=== PATIENT | female | born 1995 | race Caucasian/White ===

== ENCOUNTER 2020-03-03 09:15 | Outpatient (CLI) | payer BC, SELFPAY ==
--- NOTE | ~2020-03-03 | US_ITS ---
US pelvic complete w TV DATE: 03/03/2020 10:19 INDICATION: Irregular menstruation, amenorrhea. TECHNIQUE: Real-time imaging via transabdominal and transvaginal approaches COMPARISON: 11/20/2009 pelvic ultrasound FINDINGS: The uterus measures 6.5 cm height, 2.8 cm AP and 4.2 cm transverse dimension. Nabothian cer vical cysts are noted, the largest 1 cm. Endometrial echo complex measures 5 mm AP dimension. Right ovary 3.2 x 2.7 x 2.6 cm. Left ovary 3.7 x 2.4 x 3.5 cm. There is vascular flow to both ovaries . No abnormal pelvic mass or abnormal pelvic fluid collection is evident. IMPRESSION: No significant abnormality Reviewed, dictated and finalized at Location A. Reviewed, dictated and finalized at location A. IMPRESSION: No significant abnormality
== END 2020-03-03 09:16 | disposition home or self-care (01) ==
PROVIDERS: PCP Nurse Practitioner Adult Health
DX: N92.6 Irregular menstruation, unspecified (principal)
CPT/HCPCS: 76830; 76856

== ENCOUNTER 2020-09-27 12:22 | Emergency (ER) | payer BC, SELFPAY ==
[2020-09-27] VITALS (49 sets, daily range): BP systolic 97–151; BP diastolic 57–90; PULSE 78–111; RESP 16–39; TEMP 36.7; O2SAT 92–100
--- NOTE | ~2020-09-27 | XR_ITS ---
EXAMINATION: XR chest 1V portable DATE: 09/27/2020 14:43 INDICATION: Asthma TECHNIQUE: frontal view of the chest was obtained. COMPARISON: None FINDINGS: The lungs are clear with no focal airspace opacities, pulmonary edema, pleural effusion or pneumothor ax. The cardiomediastinal silhouette is normal. Mild lower thoracic dextrocurvature. IMPRESSION: 1. No acute cardiopulmonary disease. Reviewed, dictated and finalized at location A.
--- NOTE | 2020-09-27 12:55 | ED.ASTHMA ---
HPI - Asthma General Chief Complaint: Asthma Stated Complaint: Asthma Attack Time Seen by Provider: 09/27/20 12:35 Source: patient and RN notes reviewed Mode of arrival: ambulatory History of Present Illness HPI Narrative: Patient is 25 years old white female presents with shortness of breath, wheezing on exertion started 2 days ago. Patient been using albuterol without significant improvement. History of asthma. History of tobacco use, alcohol use, no marijuana. Patient denies any fever, chills, nausea, vomiting, chest pain. Related Data Home Medications Medication Instructions Recorded Confirmed metformin 500 mg PO TID 09/27/20 Allergies Allergy/AdvReac Type Severity Reaction Status Date / Time No Known Allergies Allergy Verified 09/27/20 12:38 Review of Systems Review of Systems: Narrative: CONSTITUTIONAL: Denies fever, chills, or sweats. EYES: Denies visual changes, redness, or discharge. ENT: Denies rhinorrhea, congestion, sore throat, or otalgia. CARDIOVASCULAR: Denies chest pain, palpitations, or edema. RESPIRATORY: Denies cough or dyspnea. GASTROINTESTINAL: Denies abdominal pain, nausea, vomiting, or diarrhea. GENITOURINARY: Denies dysuria or hematuria. SKIN: Denies rash or itching. MUSCULOSKELETAL: Denies back pain, joint pain, or myalgia. NEUROLOGIC: Denies headache, numbness, or weakness. PSYCHIATRIC: Denies anxiety or depression. Exam Narrative: Exam Narrative: General appearance: Well-developed, well-nourished Skin: Normal color Head: Normocephalic, nontraumatic Eyes: Clear conjunctiva ENT: Oropharynx normal, ears normal, nose normal Neck: Supple, nontender Chest and respiratory: Airway patent, no respiratory distress, no accessory muscle use, scattered wheezing all over anteriorly and posteriorly. Heart: Regular rate/rhythm Abdomen: Soft, nontender, no organomegaly, quiet bowel sounds Vascular: Normal peripheral pulses, normal capillary refill. Musculoskeletal: Normal range of motion, nontender back Neurologic: Alert and oriented ?3, WIRELESS NETWORK ENGINEER is normal as tested, no gross motor deficit Course Course Emergency Course: Stable Reevaluation(s) Reevaluation #1: Currently lying auscultation showed no wheezing, patient feeling much better, peak flow is 280. Date: 09/27/20 Time: 14:08 Vital Signs Vital signs: Vital Signs Temperature 36.7 C 09/27/20 12:27 Pulse Rate 99 09/27/20 12:27 Respiratory Rate 18 09/27/20 12:27 Blood Pressure 151/90 H 09/27/20 12:27 Pulse Oximetry 100 09/27/20 12:27 Temperature 36.7 C 09/27/20 12:35 Pulse Rate 97 09/27/20 13:52 Respiratory Rate 16 09/27/20 13:52 Blood Pressure 126/72 09/27/20 13:52 Pulse Oximetry 100 09/27/20 13:52 MDM - Asthma MDM Narrative Medical decision making narrative: Patient presents with asthma exacerbation. Prednisone, albuterol treatment, chest is on room air ordered. Further plan to follow Differential Diagnosis Differential diagnosis: Likely Acute exacerbation, Acute asthmatic bronchitis and Pneumonia ABG Data ABG results: 09/27/20 13:10 Puncture Site Right radial ABG pH 7.437 ABG pCO2 34.3 L ABG pO2 60.2 L ABG PO2/FiO2 Ratio 2.87 ABG HCO3 22.6 ABG O2 Saturation 92.1 L ABG O2 Content 18.8 ABG Base Excess -0.9 A-a Gradient 48.5 Oxyhemoglobin 91.5 Total Hemoglobin 14.6 O2 Delivery Device Room air O2 Liters/Min Not Reportable FiO2 21 Critical Care Time Critical Care Time Critical Care Time: Yes Total Critical Care Time: 20 Discharge Plan Discharge Clinical Impression: Asthma with acute exacerbation Qualifiers: Asthma severity: moderate Asthma persistence: unspecified Qualified Code(s)
[2020-09-27] MEDS: ALBUTEROL SULFATE NEB 2.5 MG/0.5 ML INH 10 MG INHALATION (13:10)
[2020-09-27 13:19] LABS: Alveolar/Arterial O2 Gradient 48.5 mmHg; Base Excess ABG -0.9 mEq/l (+/-2.0); Fractional Inspired Oxygen 21 %; HCO3 ABG 22.6 mEq/l (22.0-26.0); Oxygen Content ABG 18.8 %vol (16.0-22.0); Oxygen Saturation ABG 92.1 % (95.0-100.0); Oxyhemoglobin 91.5 % THb (90.0-100.0); PCO2 ABG 34.3 mmHg (35.0-45.0); PO2 ABG 60.2 mmHg (80.0-100.0); PO2 FiO2 Ratio Arterial Blood 2.87 %; Total Hemoglobin 14.6 g/dL (12.0-18.0); pH ABG 7.437 (7.350-7.450)
[2020-09-27 13:20] LABS: Device ROOM AIR; Modified Allen's Test Pass; Site Drawn RIGHT RADIAL
[2020-09-27] MEDS: predniSONE 20 MG TABLET 60 MG PO (13:27)
--- NOTE | 2020-09-27 13:52 | PC.NURSE ---
pul ox applied prior to this time
== END 2020-09-27 17:45 | disposition home or self-care (01) ==
LOC: ANHED 14:30
PROVIDERS: Emergency Provider Emergency Medicine; PCP Nurse Practitioner Adult Health
DX: J45.901 Unspecified asthma with (acute) exacerbation (principal)
CPT/HCPCS: 36600; 71045; 82805; 94640; 99283; J7512

== ENCOUNTER 2021-01-07 16:05 | Outpatient (CLI) | payer BC, SELFPAY ==
--- NOTE | ~2021-01-07 | US_ITS ---
EXAMINATION: US OB <= 14 weeks fetus DATE: 01/07/2021 16:37 INDICATION: Uncertain dates. TECHNIQUE: Real-time transabdominal pelvic ultrasound was performed. COMPARISON: None. FINDINGS: The uterus measures 13.8 x 5.9 x 8.5 cm. There is an intrauterine gestational sac. A yolk sac is iden tified. The crown rump length measures 1.8 cm, which correlates with an estimated gestational age of 8 weeks and 2 day(s) (+/-) 5 day(s). heart motion is identified measuring 170 beats per minute (bpm) by M-mode Doppler. The ovaries are not visualized. There is no free fluid in the pelvis. IMPRESSION: 1. Single living intrauterine gestation with estimated date of delivery of 08/17/2021. Reviewed, dictated and finalized at location A. IMPRESSION: 1. Single living intrauterine gestation with estimated date of delivery of 07/30.
== END 2021-01-07 16:06 | disposition home or self-care (01) ==
PROVIDERS: PCP Nurse Practitioner Adult Health; Visit Provider Obstetrics & Gynecology
DX: Z36.9 Encounter for antenatal screening, unspecified (principal); Z3A.00 Weeks of gestation of pregnancy not specified
CPT/HCPCS: 76801

== ENCOUNTER 2021-01-21 10:34 | Outpatient (CLI) | payer BC, SELFPAY ==
[2021-01-21 10:58] LABS: Basophils Absolute Auto 0.1 K/mm3 (0.0-0.1); Basophils Percent Auto 0.6 % (0.2-1.2); Eosinophils Absolute Auto 0.2 K/mm3 (0-0.3); Eosinophils Percent Auto 1.9 % (0-4.4); Hematocrit 41.6 % (37.0-47.0); Hemoglobin 13.5 g/dL (12.0-15.0); Immature Granulocyte Absolute 0.04 K/mm3 (0.00-0.031); Immature Granulocyte Percent A 0.5 % (0-0.5); Lymphocytes Absolute Auto 1.72 K/mm3 (0.9-3.2); Lymphocytes Percent Auto 21.3 % (18.3-44.2); Mean Corpuscular HGB Conc 32.5 g/dl (32-36); Mean Corpuscular Hemoglobin 28.3 pg (26-34); Mean Corpuscular Volume 87.2 fl (80-100); Mean Platelet Volume 12.3 fl (7.4-10.4); Monocytes Absolute Auto 0.5 K/mm3 (0.1-0.6); Monocytes Percent Auto 6.1 % (2.6-8.5); Neutrophils Absolute Auto 5.6 K/mm3 (1.3-6.7); Neutrophils Percent Auto 69.6 % (45.5-73.1); Platelet Count Result 255 k/mm3 (150-375); Red Blood Count 4.77 M/mm3 (4.2-5.4); Red Cell Distribution Width 13.1 % (11.5-14.5); White Blood Count 8.1 K/mm3 (4.5-10.0)
[2021-01-21 11:27] LABS: Vitamin D 25 Hydroxy 39.3 ng/mL
[2021-01-21 11:40] LABS: Thyroid Stimulating Hormone 0.617 uIU/mL (0.465-4.680)
[2021-01-21 11:51] LABS: Hepatitis B Surface Antigen Negative (Negative); Rubella IgG Antibody 30.2 IU/ML
[2021-01-21 11:54] LABS: HIV 1/2 Ab P24 Ag Result Negative (Negative)
[2021-01-21 12:00] LABS: Hepatitis C Virus Antibody Negative (Negative)
[2021-01-22 04:28] LABS: Add Urine Microscopic? YES; Amorphous Sediment Urine Few; Appearance Urine Turbid (Clear); Bilirubin Urine Negative (Negative); Blood Urine Negative (Negative); Color Urine Yellow (Yellow); Glucose Urine UA Negative (Negative); Ketones Urine Negative (Negative); Leukocyte Esterase Ur 2+ LEU/UL (NEGATIVE); Nitrate Urine Negative (Negative); Protein Urine Negative (Negative); Specific Grav Ur 1.025 (1.001-1.035); Urobilinogen Urine Negative mg/dL (<2.0)
[2021-01-22 10:05] LABS: Rapid Plasma Reagin Non-Reactive (NonReactive)
[2021-01-30 16:38] LABS: Hematocrit 41.4 % (35.0-45.0); Hemoglobin 13.5 g/dL (11.7-15.5); MCH 29.9 pg (27.0-33.0); MCV 91.6 fL (80.0-100.0); RDW 14.3 % (11.0-15.0); Red Blood Cell Count 4.52 Mill/uL (3.80-5.10)
== END 2021-01-21 10:35 | disposition home or self-care (01) ==
LOC: ANHLAB 10:36
PROVIDERS: PCP Nurse Practitioner Adult Health; Visit Provider Obstetrics & Gynecology
DX: Z34.90 Encounter for supervision of normal pregnancy, unspecified, unspecified trimester (principal); Z3A.00 Weeks of gestation of pregnancy not specified
CPT/HCPCS: 36415; 81001; 82306; 83021; 84443; 85025; 86592; 86703; 86762; 86787; 86803; 86850; 86900; 86901; 87077; 87086; 87088; 87186; 87340; G0432

== ENCOUNTER → 2021-03-25 15:43 | Outpatient (CLI) | payer BC, SELFPAY ==
--- NOTE | ~2021-03-25 | US_ITS ---
US OB /maternal detail DATE: 03/25/2021 16:25 INDICATION: anatomy screen TECHNIQUE: Real-time and color flow imaging and Doppler analysis COMPARISON: 01/07/2021 obstetrical ultrasound examination FINDINGS: Live montes intrauterine gestation, fetus in variable presentation during examination, t ransverse lie. Anterior placenta. Lower placental margin is 1.9 cm above the internal os. Subjectively normal amount of amniotic fluid. heart rate of 128 bpm; four-chamber heart. The left and right ventricular outflow tracts are not optimally demonstrated.. The cerebral ventricles, choroid plexus, cerebellum, cisterna magna and nuchal fold appear norm al. upper lip normal. spine appears normal on transverse and longitudinal views. The feta l diaphragm appears intact. stomach contains fluid, as does the urinary bladder. The kidn eys are unremarkable, without hydronephrosis. Three-vessel umbilical cord with normal insertion. Feta l extremities are unremarkable. Biparietal diameter: 4.30 cm; 19 weeks gestation Head circumference: 16.11 cm; 18 weeks 6 days Abdominal circumference: 13.79 cm; 19 weeks 1 day Femur length: 3.01 cm; 19 weeks 2 days Composite age by Hadlock formula: 19 weeks 1 day plus or minus 1 week 2 days MAYA: 08/18/2021 (compared to 08/17/2021 by prior obstetrical ultrasound) Estimated weight: 279.7 +/- 42 grams Estimated weight-GP: 40.7% Head circumference/abdominal circumference: 1.17, within normal range of 1.09-1.26 Femur length/head circumference 18.67, slightly above normal range of 16.20-18.51 IMPRESSION: Unremarkable anatomy screen; left and right ventricular outflow tracts are not well demonstrated however Reviewed, dictated and finalized at Location A. Reviewed, dictated and finalized at location B. IMPRESSION: Unremarkable anatomy screen; left and right ventricular outfl ow tracts are not well demonstrated however
== END ==
PROVIDERS: Visit Provider Obstetrics & Gynecology
DX: Z36.9 Encounter for antenatal screening, unspecified (principal); Z3A.00 Weeks of gestation of pregnancy not specified
CPT/HCPCS: 76805

== ENCOUNTER 2021-04-15 09:26 | Outpatient (CLI) | payer BC, SELFPAY ==
--- NOTE | ~2021-04-15 | US_ITS ---
US OB limited 04/15/2021 09:53 Indication: Follow-up survey Procedure: High-resolution Limited obstetrical ultrasound Comparison: Ultrasound dated 03/25/2021 Findings: There is a single living intrauterine in transverse presentation. Placenta is ant erior measuring 0.9 cm to the cervix. heart rate is 159 bpm. Amniotic fluid is subjectively nor mal. Four-chamber heart, right ventricular outflow tract and left ventricular outflow tract are visua lized on the current study. Impression: 1: Single living intrauterine in transverse presentation. 2: Low-lying marginal anterior placenta measuring 0.9 cm to the cervix. 3: Normal limited survey of the ventricular outflow tracts. Reviewed, dictated and finalized at location B. Impression: 1: Single living intrauterine in transverse presentation. 2: Low-lying marginal anterior placenta measuring 0.9 cm to the cervix. 3: Normal limited survey of the ventricular outflow tracts.
[2021-07-29 10:19] VITALS: BP 115/67; PULSE 106
== END 2021-04-15 09:27 | disposition home or self-care (01) ==
LOC: ANHIMG 09:29
PROVIDERS: PCP Nurse Practitioner Adult Health; Visit Provider Obstetrics & Gynecology
DX: O44.40 Low lying placenta NOS or without hemorrhage, unspecified trimester (principal); Z3A.00 Weeks of gestation of pregnancy not specified
CPT/HCPCS: 76815

== ENCOUNTER 2021-05-13 09:07 | Outpatient (CLI) | payer BC, SELFPAY ==
[2021-05-13 11:21] LABS: Glucose 1 Hour PP 50gm Dose 134 mg/dL
[2021-05-13 11:25] LABS: Basophils Absolute Auto 0.1 K/mm3 (0.0-0.1); Basophils Percent Auto 0.6 % (0.2-1.2); Eosinophils Absolute Auto 0.1 K/mm3 (0-0.3); Eosinophils Percent Auto 1.8 % (0-4.4); Hematocrit 38.7 % (37.0-47.0); Hemoglobin 13.1 g/dL (12.0-15.0); Immature Granulocyte Absolute 0.07 K/mm3 (0.00-0.031); Immature Granulocyte Percent A 0.9 % (0-0.5); Lymphocytes Absolute Auto 1.75 K/mm3 (0.9-3.2); Lymphocytes Percent Auto 22.3 % (18.3-44.2); Mean Corpuscular HGB Conc 33.9 g/dl (32-36); Mean Corpuscular Hemoglobin 29.6 pg (26-34); Mean Corpuscular Volume 87.4 fl (80-100); Mean Platelet Volume 12.3 fl (7.4-10.4); Monocytes Absolute Auto 0.5 K/mm3 (0.1-0.6); Monocytes Percent Auto 5.7 % (2.6-8.5); Neutrophils Absolute Auto 5.4 K/mm3 (1.3-6.7); Neutrophils Percent Auto 68.7 % (45.5-73.1); Platelet Count Result 223 k/mm3 (150-375); Red Blood Count 4.43 M/mm3 (4.2-5.4); Red Cell Distribution Width 13.2 % (11.5-14.5); White Blood Count 7.8 K/mm3 (4.5-10.0)
[2021-05-13 12:04] LABS: HIV 1/2 Ab P24 Ag Result Negative (Negative)
[2021-05-17 07:19] LABS: Rapid Plasma Reagin Non-Reactive (NonReactive)
== END 2021-05-13 09:08 | disposition home or self-care (01) ==
LOC: ANHLAB 09:09
PROVIDERS: PCP Nurse Practitioner Adult Health; Visit Provider Obstetrics & Gynecology
DX: Z34.90 Encounter for supervision of normal pregnancy, unspecified, unspecified trimester (principal); Z3A.00 Weeks of gestation of pregnancy not specified
CPT/HCPCS: 36415; 82947; 85025; 86592; 86703; G0432

== ENCOUNTER 2021-05-16 07:56 | Outpatient (CLI) | payer BC, SELFPAY ==
[2021-05-16 08:28] LABS: Glucose Fasting Gestational 103 mg/dL (>/=95)
[2021-05-16 09:48] LABS: Glucose 1 Hour Gest 181 mg/dL (>/=180)
[2021-05-16 11:17] LABS: Glucose 2 Hour Gest 136 mg/dL (>/= 155)
[2021-05-16 11:58] LABS: Glucose 3 Hour Gest 148 mg/dL (>/=140)
== END 2021-05-16 07:57 | disposition home or self-care (01) ==
PROVIDERS: PCP Nurse Practitioner Adult Health; Visit Provider Obstetrics & Gynecology
DX: R73.09 Other abnormal glucose (principal)
CPT/HCPCS: 36415; 82951; 82952

== ENCOUNTER 2021-05-22 14:30 | Outpatient (CLI) | payer BC, SELFPAY ==
--- NOTE | ~2021-05-22 | US_ITS ---
EXAMINATION: US OB follow up DATE: 05/22/2021 15:13 INDICATION: Evaluate placenta and amniotic fluid volume TECHNIQUE: Real-time transabdominal obstetric ultrasound. FINDINGS: Comparison to multiple prior studies sequentially, with oldest reviewed study dated 021. There is a single living fetus in transverse presentation. The placenta is anterior without placenta previa. Placental margin is 5.2 cm to the cervix. cardiac activity and movement is noted with a heart rate of 138 beats per minute. T he amniotic fluid volume is normal. BRIE measures 10.6 cm. The following biometric data were obtained: BPD: 68mm corresponds to gestational age 27 weeks 2 days. Head circumference: 253mm corresponds to gestational age 27 weeks 3 days. Abdominal circumference: 232mm corresponds to gestational age 27 weeks 4 days. Femur length: 52mm corresponds to gestational age 27 weeks 5 days. Estimated weight: 1095grams +/- 164grams, 37.3%.] IMPRESSION: 1. Single living intrauterine in transverse presentation with an estimated gestational age of 27 weeks 4 days by inititial ultrasound. Appropriate interval growth. 2. Normal placenta. 3: Normal BRIE measures 10.6 cm. Reviewed, dictated and finalized at location A. TRIC SHOVEL OPERATOR IMPRESSION: 1. Single living intrauterine in transverse presentation with an est imated gestational age of 27 weeks 4 days by inititial ultrasound. Appropriate interval growth. 2. Normal placenta. 3: Normal BRIE measures 10.6 cm.
== END 2021-05-22 14:31 | disposition home or self-care (01) ==
PROVIDERS: PCP Nurse Practitioner Adult Health; Visit Provider Obstetrics & Gynecology
DX: O44.42 Low lying placenta NOS or without hemorrhage, second trimester (principal); Z3A.27 27 weeks gestation of pregnancy
CPT/HCPCS: 76816

== ENCOUNTER 2021-05-29 08:00 | Outpatient (RCR) | payer BC, SELFPAY ==
[2021-05-29 07:55] VITALS: BMI 37.2
[2021-05-29 07:56] VITALS: BMI 37.2
== END 2021-07-02 11:40 | disposition home or self-care (01) ==
LOC: ANHDMC 08:00
PROVIDERS: PCP Nurse Practitioner Adult Health; Visit Provider Obstetrics & Gynecology
DX: O24.419 Gestational diabetes mellitus in pregnancy, unspecified control (principal); Z3A.00 Weeks of gestation of pregnancy not specified; Z71.89 Other specified counseling; Z71.3 Dietary counseling and surveillance
CPT/HCPCS: 97802; G0108

== ENCOUNTER 2021-07-04 13:51 | Outpatient (CLI) | payer BC, SELFPAY ==
--- NOTE | ~2021-07-04 | US_ITS ---
EXAMINATION: US OB follow up EXAM DATE: 07/04/2021 14:38 INDICATION: Growth scan OB . Follow up growth. 3rd trimester. TECHNIQUE: Pelvic obstetrical transabdominal sonogram was performed by a technologist. There are mu ltiple grayscale and Doppler images available for interpretation. Comparison is made to prior examina tion from 07/01/2021, 05/22/2021. FINDINGS: There is a single fetus identified in vertex presentation with a heart rate of 127 beats pe r minute. The placenta is located in the anterior position. There is no sonographic evidence of retr oplacental hemorrhage identified. The amniotic fluid index is 17.7 centimeters, which is normal. BIOMETRIC DATA: Biparietal diameter (BPD): 8.2 cm ----------------> 33 weeks 0 days. Head circumference (HC): 30.7 cm ----------------> 34 weeks 1 day. Abdominal circumference (AC): 30.8 cm ----------> 34 weeks 5 days. Femur length (FL): 6.5 cm --------------------------> 33 weeks 3 days. These measurements are concordant. HC/AC ratio is 1.00 (The 5th -- 95th percentile range is 0.95-1.11. Estimated weight is 2365 g +/- 355 g. This is the 57th percentile when the currently reported clinical gestation age 33 weeks 5 days, clinical estimated date of delivery (MAYA-OPE) 08/17 is used. F etal estimated gestational age based on measurements from this exam is 33 weeks 6 days, with an estim ated date of delivery (MAYA-AUA) 08/16. IMPRESSION: 1. Single fetus in vertex presentation with heart rate 127 beats per minute. 2. Estimated weight of 355 grams, 57th percentile using the currently reported clinical gestat ion age of 33 weeks 5 days, MAYA(OPE) 08/17. 3. Normal amniotic fluid index 17.7 cm. Reviewed, dictated and finalized at location A. RTISING SPECIALIST IMPRESSION: 1. Single fetus in vertex presentation with heart rate 127 beats per minute. 2. Estimated weight of 355 grams, 57th percentile using the currently re ported clinical gestation age of 33 weeks 5 days, MAYA(OPE) 08/17. 3. Normal amniotic fluid index 17.7 cm.
== END 2021-07-04 13:52 | disposition home or self-care (01) ==
PROVIDERS: PCP Nurse Practitioner Adult Health; Visit Provider Student in an Organized Health Care Education/Training Program
DX: O24.419 Gestational diabetes mellitus in pregnancy, unspecified control (principal); Z3A.33 33 weeks gestation of pregnancy
CPT/HCPCS: 76816

== ENCOUNTER 2021-08-05 10:19 | Outpatient (RCR) | payer BC, SELFPAY ==
[2021-06-24 11:34] VITALS: BP 125/73; PULSE 84
[2021-07-01 14:10] VITALS: BP 123/76; PULSE 102
[2021-07-09 11:05] VITALS: BP 123/66; PULSE 99
[2021-07-15 11:10] VITALS: BP 118/71; PULSE 101
[2021-07-22 11:09] VITALS: BP 132/69; PULSE 105
[2021-07-29 10:39] VITALS: BP 115/67; PULSE 111
--- NOTE | 2021-07-29 10:57 | PC.NURSE ---
BPP 02/03
--- NOTE | ~2021-08-05 | US_ITS ---
EXAMINATION: US OB limited w BPP DATE: 06/24/2021 11:27 INDICATION: Gestational diabetes. Third trimester. TECHNIQUE: Real-time pelvic ultrasound was performed. COMPARISON: Ultrasound 05/22/2021 FINDINGS: There is a single living fetus in breech presentation. The placenta is anterior. heart rate is 145 beats per minute (bpm). The amniotic fluid index is 13.8 cm, which is normal. Biophysical profile performed by the technologist: breathing (30 sec sustained breathing in 30 minutes): 2 out of 2 movement (3 gross body movements in 30 minutes): 2 out of 2 tone (one episode of npfatcb-xtynrsmle-nvxogtv limb movement): 2 out of 2 Amniotic fluid pocket (2 cm): 2 out of 2 Total score: 8 out of 8 IMPRESSION: 1. Single living fetus in breech presentation. 2. Biophysical profile 8 out of 8. Reviewed, dictated and finalized at location A. LINE ASSEMBLER
--- NOTE | ~2021-08-05 | US_ITS ---
EXAMINATION: US OB limited w BPP DATE: 07/29/2021 10:55 INDICATION: Gestational diabetes, third trimester TECHNIQUE: Real-time pelvic ultrasound was performed. The interpreting radiologist was not present fo r the study. COMPARISON: 07/22/2021 FINDINGS: There is a single living fetus in vertex presentation. The placenta is anterior. heart rate is 161 beats per minute (bpm). The amniotic fluid index is 11.8 cm which is normal. Biophysical profile performed by the technologist: breathing (30 sec sustained breathing in 30 minutes): 2 out of 2 movement (3 gross body movements in 30 minutes): 2 out of 2 tone (one episode of uiqetxn-uwnhaolli-mdungqu limb movement): 2 out of 2 Amniotic fluid pocket (2 cm): 2 out of 2 Total score: 8 out of 8 IMPRESSION: 1. Single living fetus in vertex presentation. 2. Biophysical profile 8 out of 8. 3. Normal amniotic fluid index. Reviewed, dictated and finalized at location B. PTIONIST/TELEPHONE OPERATOR
--- NOTE | ~2021-08-05 | US_ITS ---
EXAMINATION: US OB limited w BPP EXAM DATE: 07/09/2021 10:31 INDICATION: gdm/ BRIE, BPP GDM/BRIE/BPP . 3rd trimester. TECHNIQUE: Pelvic obstetrical transabdominal sonogram was performed by a technologist. There are mu ltiple grayscale and Doppler images available for interpretation. Comparison is made to prior examina tion from 07/04/2021. FINDINGS: There is a single fetus identified in vertex presentation with a heart rate of 137 beats pe r minute. The placenta is located in the anterior position. There is no sonographic evidence of retr oplacental hemorrhage identified. The amniotic fluid index is 15.2 centimeters, which is normal. BIOPHYSICAL PROFILE (performed by the technologist) breathing (30 sec sustained breathing in 30 minutes): 2 out of 2 movement (3 gross body movements in 30 minutes): 2 out of 2 tone (one episode of lysdtar-fqphgjzpq-nmjgtvh limb movement): 2 out of 2 Amniotic fluid pocket (2 cm): 2 out of 2 Total score: 8 out of 8 IMPRESSION: 1. Single fetus with heart rate of 137 bpm. 2. Normal biophysical profile score of 8 out of 8. Reviewed, dictated and finalized at location A. Y MAN
--- NOTE | ~2021-08-05 | US_ITS ---
EXAMINATION: US OB limited w BPP DATE: 07/01/2021 14:00 INDICATION: Gestational diabetes. Third trimester. TECHNIQUE: Real-time pelvic ultrasound was performed. COMPARISON: Ultrasound 06/24/2021 FINDINGS: There is a single living fetus in vertex presentation. The placenta is anterior. heart rate is 141 beats per minute (bpm). The amniotic fluid index is 13.4 cm, which is normal. Biophysical profile performed by the technologist: breathing (30 sec sustained breathing in 30 minutes): 2 out of 2 movement (3 gross body movements in 30 minutes): 2 out of 2 tone (one episode of jcbeypf-sxzdhlkiq-njdnpnp limb movement): 2 out of 2 Amniotic fluid pocket (2 cm): 2 out of 2 Total score: 8 out of 8 IMPRESSION: 1. Single living fetus in vertex presentation. 2. Biophysical profile 8 out of 8. Reviewed, dictated and finalized at location A. L VIAL GRINDER
--- NOTE | ~2021-08-05 | US_ITS ---
EXAMINATION: US OB limited w BPP EXAM DATE: 07/15/2021 10:48 INDICATION: GDM-- BPP, BRIE GDM . 3rd trimester. TECHNIQUE: Pelvic obstetrical transabdominal sonogram was performed by a technologist. There are mu ltiple grayscale and Doppler images available for interpretation. Comparison is made to prior examina tion from 07/09/2021. FINDINGS: There is a single fetus identified in vertex presentation with a heart rate of 138 beats pe r minute. The placenta is located in the anterior position. There is no sonographic evidence of retr oplacental hemorrhage identified. The amniotic fluid index is 15.4 centimeters, which is normal. BIOPHYSICAL PROFILE (performed by the technologist) breathing (30 sec sustained breathing in 30 minutes): 2 out of 2 movement (3 gross body movements in 30 minutes): 2 out of 2 tone (one episode of busqlhd-gnifvkqax-uqyzpgc limb movement): 2 out of 2 Amniotic fluid pocket (2 cm): 2 out of 2 Total score: 8 out of 8 IMPRESSION: 1. Single fetus with heart rate of 138 bpm. 2. Normal biophysical profile score of 8 out of 8. 3. Normal BRIE 15.4 cm. Reviewed, dictated and finalized at location G. RUCTIONAL PARAPROFESSIONAL
--- NOTE | ~2021-08-05 | US_ITS ---
EXAMINATION: US OB limited w BPP EXAM DATE: 07/22/2021 10:45 INDICATION: BPP and BRIE gestational diabetes. 3rd trimester. TECHNIQUE: Pelvic obstetrical transabdominal sonogram was performed by a technologist. There are mu ltiple grayscale and Doppler images available for interpretation. Comparison is made to prior examina tion from 07/15/2021. FINDINGS: There is a single fetus identified in vertex presentation with a heart rate of 150 beats pe r minute. The placenta is located in the anterior position. There is no sonographic evidence of retr oplacental hemorrhage identified. The amniotic fluid index is 19.1 centimeters, which is normal. BIOPHYSICAL PROFILE (performed by the technologist) breathing (30 sec sustained breathing in 30 minutes): 0 out of 2 movement (3 gross body movements in 30 minutes): 2 out of 2 tone (one episode of lypsjsw-ghiiastpx-ukjxmmz limb movement): 2 out of 2 Amniotic fluid pocket (2 cm): 2 out of 2 Total score: 6 out of 8 IMPRESSION: 1. Single fetus with heart rate of 150 bpm. 2. Abnormal BPS 6/8. 3. Normal BRIE 19.1 cm. Reviewed, dictated and finalized at location A. NICAL PROJECT MANAGER
--- NOTE | ~2021-08-05 | US_ITS ---
EXAMINATION: US OB limited w BPP DATE: 08/05/2021 11:28 INDICATION: Biophysical profile. Assess amniotic fluid index. Maternal gestational diabetes. TECHNIQUE: Real-time pelvic ultrasound was performed. The interpreting radiologist was not present fo r the study. COMPARISON: 07/29/2021 FINDINGS: There is a single living fetus in vertex presentation. The placenta is anterior. heart rate is 150 beats per minute (bpm). Normal amniotic fluid index of 12.1 cm (5th%-95%: 7.3-23.9 cm at 38 week s estimated gestational age) Biophysical profile performed by the technologist: breathing (30 sec sustained breathing in 30 minutes): 2 out of 2 movement (3 gross body movements in 30 minutes): 2 out of 2 tone (one episode of yfwhwbe-dhotlhpbc-jbrhcbv limb movement): 2 out of 2 Amniotic fluid pocket (2 cm): 2 out of 2 Total score: 8 out of 8 IMPRESSION: 1. Single living fetus in vertex presentation with heart rate of 150 bpm. 2. Biophysical profile 8 out of 8. 3. Normal amniotic fluid index of 12.1 cm. Reviewed, dictated and finalized at location A. RMATION SERVICES TECH
[2021-08-05 11:12] VITALS: BP 122/67; PULSE 110
== END 2021-08-20 09:36 | disposition home or self-care (01) ==
LOC: ANHOBOP 10:19
PROVIDERS: PCP Nurse Practitioner Adult Health; Visit Provider Obstetrics & Gynecology
DX: O24.419 Gestational diabetes mellitus in pregnancy, unspecified control (principal); Z3A.32 32 weeks gestation of pregnancy; Z3A.33 33 weeks gestation of pregnancy; Z3A.34 34 weeks gestation of pregnancy; Z3A.35 35 weeks gestation of pregnancy; Z3A.36 36 weeks gestation of pregnancy; Z3A.37 37 weeks gestation of pregnancy; Z3A.38 38 weeks gestation of pregnancy
CPT/HCPCS: 59025; 76815; 76819

== ENCOUNTER 2021-08-12 05:06 | Inpatient (IN) | payer BC, SELFPAY ==
[2021-08-12] VITALS (188 sets, daily range): BP systolic 77–135; BP diastolic 39–118; PULSE 69–121; TEMP 36.7–38.1; O2SAT 97–100; BMI 37.3
--- NOTE | 2021-08-12 05:29 | LDADM ---
This patient, Anuradha Samson, was admitted to Labor/Delivery/Recovery 104 on 08/12/21 at 05:06. Plans for labor, pain management and were discussed with patient. Patient/family oriented to hospital policies and general routines including ID bracelet, bed and alarms, visiting hours, pain management, procedures, bathroom and other care routines, personal items, smoking policy, room service/diet and guest tray routines, security routines, and visiting hours. Patient/Family are encouraged to report perceived risks to care and to ask questions if they do not understand what they are told or what they should do. See OBIX for further documentation.
[2021-08-12 06:14] LABS: Basophils Percent Auto 0.5 % (0.2-1.2); Eosinophils Absolute Auto 0.1 K/mm3 (0-0.3); Eosinophils Percent Auto 1.4 % (0-4.4); Hematocrit 35.7 % (37.0-47.0); Hemoglobin 11.8 g/dL (12.0-15.0); Immature Granulocyte Absolute 0.06 K/mm3 (0.00-0.031); Immature Granulocyte Percent A 0.7 % (0-0.5); Lymphocytes Absolute Auto 2.26 K/mm3 (0.9-3.2); Lymphocytes Percent Auto 26.2 % (18.3-44.2); Mean Corpuscular HGB Conc 33.1 g/dl (32-36); Mean Corpuscular Hemoglobin 27.6 pg (26-34); Mean Corpuscular Volume 83.6 fl (80-100); Mean Platelet Volume 13.5 fl (7.4-10.4); Monocytes Absolute Auto 0.5 K/mm3 (0.1-0.6); Neutrophils Absolute Auto 5.6 K/mm3 (1.3-6.7); Neutrophils Percent Auto 65.2 % (45.5-73.1); Platelet Count Result 183 k/mm3 (150-375); Red Blood Count 4.27 M/mm3 (4.2-5.4); Red Cell Distribution Width 14.4 % (11.5-14.5); White Blood Count 8.6 K/mm3 (4.5-10.0)
[2021-08-12] MEDS: OXYTOCIN 30 UNITS/NS 500 ML 30 UNITS/500 ML BAG 4 UNITS IV CONT (06:26)
[2021-08-12] MEDS: LACTATED RINGERS 1,000 ML 125 ML IV CONT ×3 (06:26→14:48)
[2021-08-12 06:32] LABS: Glucose Point of Care 104 mg/dl (65-105)
[2021-08-12 06:44] LABS: Glucose 104 mg/dL (65-110)
[2021-08-12 07:02] LABS: HIV 1/2 Ab P24 Ag Result Negative (Negative)
[2021-08-12 07:21] LABS: Rapid Plasma Reagin Non-Reactive (NonReactive)
--- NOTE | 2021-08-12 08:17 | WPDOBADMIT ---
Obstetrics - Admit Note Admission Note: record reviewed. No pertinent additions to the history and/or any subsequent changes in the physical findings that are not consistent with the expected course of the were found. Additions to the history and/or subsequent changes in the physical findings follow. G1 at 39+3 for induction of labor. Cervix 3/50/-2. AROM with clear fluid. GDMA2, blood sugar 104 this morning. Continue pitocin.
[2021-08-12 10:17] LABS: Glucose Point of Care 92 mg/dl (65-105)
[2021-08-12] MEDS: fentaNYL CITRATE INJ (*CRX) 100 MCG/2 ML VIAL 50 MCG IV PUSH (11:28)
[2021-08-12] MEDS: fentaNYL CITRATE INJ (*CRX) 100 MCG/2 ML VIAL IV PUSH (13:25)
--- NOTE | 2021-08-12 14:14 | WPDANESEPP ---
Anes - Eval Pre Procedure Procedure: labor epidural Date/Time: 08/12/21 14:14 Surgeon: griffin Pre Op Diagnosis: IOL' Patient Data Age: 25 Gender: F Height: 1.57 m Weight: 92.75 kg Last Vital Signs Temp 36.9 C 08/12/21 10:15 Pulse 112 H 08/12/21 14:13 BP 77/42 L 08/12/21 14:13 Pulse Ox 99 08/12/21 14:13 Allergies Allergy/AdvReac Type Severity Reaction Status Date / Time codeine AdvReac Mild Nausea and Verified 08/05/21 08:18 Vomiting Home Medications Medication Instructions Recorded Confirmed Type docosahexaenoic acid 200 mg capsule 200 mg PO DAILY 30 Days #30 cap 03/11/21 08/12/21 Rx blood sugar diagnostic 05/20/21 07/22/21 History blood-glucose meter 05/20/21 07/22/21 History lancets 05/20/21 07/22/21 History metformin 500 mg tablet 500 mg PO DAILY #90 tablet 07/08/21 08/12/21 Rx Laboratory Tests 08/12/21 08/12/21 08/12/21 05:56 05:56 05:56 WBC 8.6 K/mm3 K/mm3 (4.5-10.0) RBC 4.27 M/mm3 M/mm3 (4.2-5.4) Hgb 11.8 g/dL L g/dL (12.0-15.0) Hct 35.7 % L % (37.0-47.0) MCV 83.6 fl fl (80-100) MCH 27.6 pg pg (26-34) MCHC 33.1 g/dl g/dl (32-36) RDW 14.4 % % (11.5-14.5) Plt Count 183 k/mm3 k/mm3 (150-375) MPV 13.5 fl H fl (7.4-10.4) Immature Gran % (Auto) 0.7 % H % (0-0.5) Neut % (Auto) 65.2 % % (45.5-73.1) Lymph % (Auto) 26.2 % % (18.3-44.2) Irion % (Auto) 6.0 % % (2.6-8.5) Eos % (Auto) 1.4 % % (0-4.4) Baso % (Auto) 0.5 % % (0.2-1.2) Lymph # (Auto) 2.26 K/mm3 K/mm3 (0.9-3.2) Irion # (Auto) 0.5 K/mm3 K/mm3 (0.1-0.6) Eos # (Auto) 0.1 K/mm3 K/mm3 (0-0.3) Baso # (Auto) 0.0 K/mm3 K/mm3 (0.0-0.1) Abs Immat Gran (auto) 0.06 K/mm3 H K/mm3 (0.00-0.031) Absolute Neuts (auto) 5.6 K/mm3 K/mm3 (1.3-6.7) Absolute Nucleated RBC 0.0 K/mm3 K/mm3 (0.0-0.012) Nucleated RBC % 0.0 % % (0.0-0.2) % Immature Plt Fraction 27.0 % H % (0.9-11.2) Glucose POC Capillary Glucose RPR Non-reactive (NonReactive) HIV 1&2 Ab/P24 Ag 4thGn Blood Type A Positive Antibody Screen Negative 08/12/21 08/12/21 08/12/21 05:56 05:59 06:14 WBC RBC Hgb Hct MCV MCH MCHC RDW Plt Count MPV Immature Gran % (Auto) Neut % (Auto) Lymph % (Auto) Irion % (Auto) Eos % (Auto) Baso % (Auto) Lymph # (Auto) Irion # (Auto) Eos # (Auto) Baso # (Auto) Abs Immat Gran (auto) Absolute Neuts (auto) Absolute Nucleated RBC Nucleated RBC % % Immature Plt Fraction Glucose 104 mg/dL mg/dL (65-110) POC Capillary Glucose 104 mg/dl mg/dl (65-105) RPR HIV 1&2 Ab/P24 Ag 4thGn Negative (Negative) Blood Type Antibody Screen 08/12/21 10:13 WBC RBC Hgb Hct MCV MCH MCHC RDW Plt Count MPV Immature Gran % (Auto) Neut % (Auto) Lymph % (Auto) Irion % (Auto) Eos % (Auto) Baso % (Auto) Lymph # (Auto) Irion # (Auto) Eos # (Auto) Baso # (Auto) Abs Immat Gran (auto) Absolute Neuts (auto) Absolute Nucleated RBC Nucleated RBC % % Immature Plt Fraction Glucose POC Capillary Glucose 92 mg/dl mg/dl (65-105) RPR HIV 1&2 Ab/P24 Ag 4thGn Blood Type Antibody Screen Patient hx anesthesia problems: none Family hx anesthesia problems: none
[2021-08-12 14:52] LABS: Glucose Point of Care 80 mg/dl (65-105)
[2021-08-12 18:30] LABS: Glucose Point of Care 74 mg/dl (65-105)
[2021-08-12] MEDS: ACETAMINOPHEN 325 MG TABLET 650 MG PO (20:32)
[2021-08-12 20:40] LABS: Glucose Point of Care 79 mg/dl (65-105)
[2021-08-12 22:54] LABS: Glucose Point of Care 77 mg/dl (65-105)
[2021-08-12] MEDS: AMPICILLIN 2 GM/NS 100 ML 2 GM/100 ML BAG IVPB (23:11)
[2021-08-13] VITALS (22 sets, daily range): BP systolic 111–134; BP diastolic 47–74; PULSE 78–156; RESP 16–18; TEMP 36.3–37.7; O2SAT 97–100
--- NOTE | 2021-08-13 00:53 | PM.OBPRVD ---
OB - Delivery Note Procedure Delivery date: 08/13/21 Procedure: Events: Diabetes Mellitus Intrapartal Events: Chorioamnionitis Induction method: AROM and Per Pitocin Protocol Delivery monitor: External FHT and Internal Uterine Route of delivery: Laceration Description: Periurethral (bilateral) and Perineal - 2nd Degree Delivery repair: vicryl (2-0) Specimen: No Quantitative Blood Loss (ml): 238 Anesthesia type: Epidural Disposition: floor Baby Date of : 08/13/21 Time of : 00:26 Weeks of gestation at delivery: 39 Infant gender: Female Weight (pounds): 7 Weight (ounces): 15 presentation: vertex position: Right Occiput Anterior Placenta delivery description: Spontaneous Cord Vessel Description: 3 Vessels and Clamped/Cut score one minute: 7 score five minutes: 8
[2021-08-13] MEDS: OXYTOCIN 30 UNITS/NS 500 ML 30 UNITS/500 ML BAG 125 UNITS IV CONT (01:30)
[2021-08-13] MEDS: IBUPROFEN 600 MG TABLET PO (02:49)
[2021-08-13] MEDS: DOCUSATE SODIUM 100 MG CAPSULE PO ×2 (10:16→15:59)
[2021-08-13] MEDS: MULTIVIT/MIN/PREN/FOL AC/IRON TABLET 1 TAB PO (10:16)
[2021-08-13] MEDS: ACETAMINOPHEN 325 MG TABLET 650 MG PO (10:16)
--- NOTE | 2021-08-13 10:49 | PC.NURSE ---
[id number] Introductions were made and mother led the discussion of her desires and plans to feeding her baby. Mother desires to breastfeed but states she isn't opposed to formula. Reviewed handwashing to prevent infection before and after taking care of her baby. Mom is holding swaddled in bed. Mother verbalizes she has not latched since related to infant was level 2. RN unwrapped and undress and placed infant skin to skin on mother's chest. Discussed how to watch for early feeding cues (mother given visual handout), place skin to skin, then feeding baby when infant is ready or every 2-3 hours. Mother has harvested her colostrum and given it to the . Reviewed positioning/alignment with the use of the visuals in the mom and baby guide and demonstration. Mother voiced understanding of waiting for infant to demonstrate big wide open gape (130-150 degrees) for . Reviewed there is to be no pain with , how to detach from the breast, visuals to watch for to confirm effective . Reviewed effective latching with resources tool, visual handout and mom and baby guide. Mother has verbalized understanding and demonstrated watching for feeding cues for responsive feeding or how to stimulate to initiate from the start of the last feeding. Mother hand expressed colostrum into infants mouth with assistance. Mother voiced understanding to feed when she sees feeding cues, 8-12 times in 24 hours approximately every 2-3 hours from the start of the last feeding, to call for assistance if baby doesn't latch or she has discomfort with nursing. Reported to primary RN.
--- NOTE | 2021-08-13 13:13 | PC.NURSE ---
1132 - RN to assess feeding. Mother is feeding hand expressed breastmilk with a syringe. Mother states she attempted to breastfeed and infant did not want to latch. Reviewed plan to call for assistance with latching if there's no latch or discomfort with latching. Mother voiced understanding and is content with feeding 5ml of hand expressed colostrum. Reported to primary RN.
[2021-08-14] MEDS: IBUPROFEN 600 MG TABLET PO ×3 (00:30→16:21)
[2021-08-14] MEDS: ACETAMINOPHEN 325 MG TABLET 650 MG PO ×2 (04:20→12:13)
[2021-08-14 05:30] LABS: Hematocrit 34.2 % (37.0-47.0); Hemoglobin 10.9 g/dL (12.0-15.0)
[2021-08-14 07:00] VITALS: BP 103/59; PULSE 76; RESP 18; TEMP 35.8; O2SAT 99
--- NOTE | 2021-08-14 08:03 | WPDANLDPN2 ---
Anes-Prog Note L&D Date/Time: 08/14/21 08:03 Comfortable throughout: labor and delivery Neuraxial method: epidural Epidural/Spinal procedure site: clean & non-tender Neuro status: Neuro function grossly intact. Cardiovascular status: normal Respiratory status: normal Airway patency: baseline Mental status: baseline Post-Op hydration status: normal Vital Signs: Last Vital Signs Temp 36.5 C 08/13/21 19:40 Pulse 88 08/13/21 19:40 Resp 18 08/13/21 19:40 BP 113/62 08/13/21 19:40 Pulse Ox 98 08/13/21 19:40 Pain score (VAS): 07/08 Post-procedural complaints: none Patient feedback: Patient satisfied with anesthetic care.
--- NOTE | 2021-08-14 08:03 | PM.OBPNVD ---
OB - PN: Subj Subjective Date/time seen: 08/14/21 08:03 Patient comments: no complaints, pain well controlled and other (Lochia similar to menses) [place] baby status: doing well OB - PN: Obj Data Labs CBC & Chem 7: 08/14/21 04:22 08/12/21 05:59 Labs: Laboratory Results - last 24 hr 08/14/21 04:22 Hgb 10.9 L Hct 34.2 L OB - PN A/P Plan day: 1 (s/p vaginal delivery, doing well) Plan: routine care, discharge home and follow up 6 weeks Time Spent With Patient Time: Total time spent is greater than 50% in coordination of care (as documented) at patient's floor/unit and/or counseling patient: Time with patient: less than 15 minutes Exam Const: General: no acute distress GI: Inspection: other (Fundus firm and nontender at umbilicus) GI Palp: Yes Soft to palpation and No Tenderness to palpation present (GI) Extrem: General: no edema
--- NOTE | 2021-08-14 08:04 | PM.OBDSVD ---
DS: Admitting Diagnosis Discharge Date 08/14/2021 Admitting Diagnosis Induction of labor DS: Discharge Diagnosis Discharge Diagnosis (1) (spontaneous vaginal delivery): Code(s): O80 - Encounter for full-term uncomplicated delivery Status: Acute OB - DS: Summary OB Procedures : None OB Procedures Intrapartum: Spontaneous Vag Delivery OB Procedures: : None Peripartum Data Infant Delivery Method: Natural Vaginal Laceration Description: Periurethral and Perineal - 2nd Degree complications: none Status at Discharge Functional status at discharge: independent ambulation Overall status at discharge: patient is progressing back to baseline Time Spent with Patient Time attestation: Total time spent providing and/or coordinating discharge services: Time spent: Less than 30 minutes DS: Data Data Completed and Pending Labs on day of discharge: Labs from last 24 hours 08/14/21 04:22 Hgb 10.9 L Hct 34.2 L Discharge Plan Discharge Attending physician on discharge: Jayla Teague Discharging Clinician: Jayla Teague Patient Disposition: Home, Self-Care Activity: may shower and pelvic rest Diet: as tolerated Patient Instructions: Antibiotic Form Stand Alone Forms: General Discharge Information Follow-up/Referrals: Jayla Teague MD [Physician] - 6 Weeks Discharge Medications: New ibuprofen 600 mg Tablet 600 mg PO Q6H PRN (Reason: Cramping) Qty: 60 RF: 0 Continued DHA 200 mg capsule 200 mg PO DAILY 30 Days Qty: 30 RF: 5 Discontinued metformin 500 mg tablet 500 mg PO DAILY Qty: 90 RF: 0 No Action (DME) blood-glucose meter Kit See Rx Instructions .Route RF: 0 (DME) lancets [Accu-Chek Fastclix Lancet Drum] Misc See Rx Instructions .Route RF: 0 (DME) Accu-Chek SmartView Test Strip Strip See Rx Instructions .Route RF: 0 Date of admission: 08/12/21 05:06 Primary Care Provider: Claudia Perdomo Admitting Provider: Jayla Teague Attending physician on admission: Jayla Teague Condition: Stable
[2021-08-14] MEDS: DOCUSATE SODIUM 100 MG CAPSULE PO ×2 (10:11→16:21)
[2021-08-14] MEDS: MULTIVIT/MIN/PREN/FOL AC/IRON TABLET 1 TAB PO (10:11)
--- NOTE | 2021-08-14 12:58 | PC.NURSE ---
[id number] Consulted with patient to see how feedings have been going so far. Reviewed signs of a correct latch, effective nursing and suck swallow ratio and mother states that most of the time infant is able to maintain latch without discomfort to mother. Mother did offer supplement to last night when she was concerned about not being able Nipple care reviewed. Instructed mother to call out for RN assistance if she is unable to latch for feeding or she has discomfort with nursing. Instructed feeding should be initiated three hours from start of last feeding or if feeding cues are noted before. Mother voiced understanding of information shared. [phone] Mother independently latches effective to breast, with rocking motion and appropriate suck/swallow ratios. Mom plans to pump her breast if infant doesn't latch optimally. Reported to primary RN.
--- NOTE | 2021-08-14 15:03 | PC.NURSE ---
Patient viewed the discharge video Mother & Baby Care, The First Two Weeks . Patient was given the opportunity and encouraged to ask questions. Patient verbalized understanding of information shared and has been given the mother/baby guide for home reference.
[2021-08-15 11:10] VITALS: BP 131/80; PULSE 79; RESP 20; TEMP 37.3; O2SAT 100
== END 2021-08-14 19:07 | disposition home or self-care (01) | DRG 805 ==
LOC: ANHLDR 05:13 → ANHOB2 08-13 04:13
PROVIDERS: Admitting Provider Obstetrics & Gynecology; PCP Nurse Practitioner Adult Health; Visit Provider Obstetrics & Gynecology
DX: O24.429 Gestational diabetes mellitus in childbirth, unspecified control (principal); O41.1230 Chorioamnionitis, third trimester, not applicable or unspecified; Z37.0 Single live birth; Z3A.39 39 weeks gestation of pregnancy; O70.1 Second degree perineal laceration during delivery; O71.82 Other specified trauma to perineum and vulva
CPT/HCPCS: 36415; 82947; 82948; 85014; 85018; 85025; 85055; 86592; 86703; 86850; 86900; 86901; A9270; G0432; J0290; J2590; J2795; J3010; J7120

== ENCOUNTER → 2021-10-08 01:40 | Outpatient (CLI) | payer BC, SELFPAY ==
[2021-10-08 11:16] LABS: SARS-CoV-2 RNA PCR Negative
== END ==
PROVIDERS: PCP Nurse Practitioner Adult Health; Visit Provider Otolaryngology
DX: Z01.812 Encounter for preprocedural laboratory examination (principal); Z20.822 Contact with and (suspected) exposure to COVID-19
CPT/HCPCS: C9803; U0003; U0005

== ENCOUNTER 2021-10-11 00:47 | Day surgery (SDC) | payer BC, SELFPAY ==
[2021-10-07 11:28] VITALS: BMI 34.7
--- NOTE | 2021-10-07 11:39 | PC.NURSE ---
Report to the Outpatient Waiting Room, entrance under the green pavilion located off [facility], at time 0600 on date 10/11/21. OR Time: 0730. - You and your visitor will be asked a series of questions to screen for COVID 19 for your protection. - A mask is required within the hospital. One visitor will be allowed to accompany the patient into the hospital. Patients visitor will be instructed to remain with patient at all times or leave the building. We will allow the visitor to come back to the postoperative area when patient is ready. Preoperative COVID Testing Requirements: COVID TEST 10/08 AT 0905 No COVID Test needed if: (proof is required; if not received patient will have Rapid Test prior to entry) - Patient has received COVID Vaccine at least 14 days prior to procedure date or - Patient has positive COVID test result within last 90 days of surgery date. COVID Test needed if above criteria is not met If not COVID vaccinated a COVID test must be conducted within 72 hours of surgery and patient is asked to isolate self from time of testing until procedure. You will go to the [facility] for your COVID testing. The [facility] site is located at the corner of [address] from [facility]. You will only be called if COVID results are positive and your surgeon may reschedule your elective surgery date. Patients may have clear liquids (water, carbonated beverages, clear teas, apple juice) until 3 hours prior to surgery with a maximum of 20 ounces. - No food from midnight until time of surgery Take the following medications with a SIP of water the morning of surgery: CONTROL PILL Medications to discontinue per physician: N/A Date to take last dose: N/A Please no make-up, nail senegalese, hairspray, perfume, deodorant, or body powder the day of surgery. No jewelry (including any body piercings) or valuables the day of surgery, leave them at home. Please take a shower or bath the night before, or the morning of, surgery with an antibacterial soap. Wear comfortable, loose fitting clothing. - Jewelry must be removed prior to entering the operating room. Rings and piercings that are not removed may be cut off. - The hospital will not accept responsibility for valuables. - Please leave all valuables, including medications, at home the day of surgery. If you are going home after surgery, a licensed rivet driver must drive you home. - NO public transportation without another adult. - We recommend that an adult stay with you for 24 hours following discharge. - We also recommend that you do not drive, make important decision, drink alcoholic beverages, or take any drugs that were not prescribed by your health care provider for at least 24 hours after your discharge time. Follow any additional instructions given to you from your surgeon. Telephone instructions given to ROBBY TYLER and asked if any additional questions and then verbalized understanding. Patient advised to call surgeon office or pre surgery nurse liaison [phone] if any additional questions.
--- NOTE | 2021-10-10 12:01 | WPDANESEPPF ---
Anes - Initial Pre Proc Eval Procedure: Operation Date: 10/11/21 07:30 Proposed Procedures p Excision Right Nasal Septal Lesion - Berny Glez MD Date/Time: 10/10/21 12:01 Surgeon: Berny Glez MD Pre Op Diagnosis: right nasal septal lesion Patient Data Age: 26 Gender: F Height: 1.57 m Weight: 86.18 kg Allergies Allergy/AdvReac Type Severity Reaction Status Date / Time codeine AdvReac Mild Nausea and Verified 10/11/21 06:12 Vomiting Home Medications Medication Instructions Recorded Confirmed Type norgestimate-ethinyl estradiol 1 tablet PO DAILY #84 tablet 09/30/21 10/11/21 Rx 0.18 mg/0.215mg/0.25mg-35 mcg(28)tablet Patient hx anesthesia problems: none Family hx anesthesia problems: none Results Review: All pre-operative results and documents have been reviewed as part of the pre-operative evaluation. [facility] Past Medical History Medical History (Updated 10/10/21 @ 12:01 by Haja Dsouza DO) Anxiety Asthma Vaginal delivery x1 Surgical History Surgical History S/P hernia surgery S/P tonsillectomy Family History Family History Mother Depression Cervical cancer Grandparent Malignant neoplasm of prostate Multiple myeloma Social History Social History Years smoked: 8 Smoking status: Current every day smoker Tobacco type: cigarettes Second hand tobacco smoke exposure: No Alcohol intake: current Drinks per week: 4 Substance use: never Substance use type: does not use Living arrangements: with family Spiritual care concerns: No Anes - Eval Final PreProcedure Day of Procedure 10/10/21 12:01 Patient weight: obese Heart: regular rate and rhythm Lungs: clear to auscultation and normal air movement Airway: Mallampati scale class II Neurological: alert and oriented Last oral intake: >/= 8 hours ASA classification: II Emergent: no Anesthetic plan: proceed Anesthesia type and monitoring: general LMA and standard monitoring Results Review: All pre-operative results and documents have been reviewed as part of the pre-operative evaluation. Informed Consent: The patient's anesthetic plan and its attendant risks and benefits were discussed with the patient/family/POA. Questions were solicited and answers provided to the satisfaction of the patient/family/POA.
--- NOTE | 2021-10-10 15:13 | PM.IMHP ---
H&P: HPI History of Present Illness Date/Time: 10/10/21 15:13 Chief Complaint: intranasal lesion right Narrative: Patient presents for planned surgical procedure. No change in symptoms no change in medical history. Review of Systems Constitutional: Constitutional: Denies fatigue, Denies fever(s) and Denies lethargy Eyes: Eyes: Denies blurry vision and Denies change in vision ENT: Reports as per HPI Cardiovascular: Cardiovascular: Denies chest pain Respiratory: Respiratory: Denies cough Endocrine: Endocrine: Denies fatigue Hematologic/Lymphatic: Hematologic/Lymphatic: Denies easy bleeding, Denies easy bruising and Denies lymphadenopathy Allergic/Immunologic: Allergic/Immunologic: Denies seasonal rhinorrhea [facility] Past Medical History Medical History (Updated 10/10/21 @ 12:01 by Haja Dsouza DO) Anxiety Asthma Vaginal delivery x1 Surgical History Surgical History S/P hernia surgery S/P tonsillectomy Family History Family History Mother Depression Cervical cancer Grandparent Malignant neoplasm of prostate Multiple myeloma Social History Social History Years smoked: 8 Smoking status: Current every day smoker Tobacco type: cigarettes Second hand tobacco smoke exposure: No Alcohol intake: current Drinks per week: 4 Substance use: never Substance use type: does not use Spiritual care concerns: No Meds Home Medications and Allergies Home Medications Medication Instructions Recorded Confirmed Type norgestimate-ethinyl estradiol 1 tablet PO DAILY #84 tablet 09/30/21 10/07/21 Rx 0.18 mg/0.215mg/0.25mg-35 mcg(28)tablet Allergies Allergy/AdvReac Type Severity Reaction Status Date / Time codeine AdvReac Mild Nausea and Verified 10/07/21 11:28 Vomiting Exam Const: General: cooperative, healthy appearing, comfortable, well developed and alert HENMT: Head: normal to inspection, normocephalic and atraumatic Ears: hearing grossly normal bilaterally, external ears normal, TM's normal bilaterally and EAC's normal General nose exam: Normal external nose present, Normal nares present, No nasal polyps present, mucous membranes and turbinates abnormal, abnormal septum and Other nasal findings present ( Right anterior granulomatous lesion) Face and sinus: normal facial exam Mouth: Yes Normal oral and palatal mucosa present, Yes lip normal, Yes tongue normal, Yes oropharynx normal and Yes moist mucous membranes Teeth and gingiva: dentition normal and gingiva normal Throat: posterior oropharynx normal, tonsils normal and uvula midline Eyes: General: appearance normal, both eyes and all related structures Periorbital: periorbital findings normal Eyelids: eyelids normal Conjunctivae: conjunctivae normal Sclera: sclerae normal Neck: Neck: normal visual inspection, full ROM and no lymphadenopathy Thyroid: thyroid normal Lymphatic: no lymphadenopathy noted Resp: Effort & Inspection: normal respiratory effort and able to speak in complete sentences Cardio: Jugular venous distension: no JVD Neuro: Cranial nerves: Yes CN's II-XII intact bilaterally Assessment and Plan Assessment and plan (1) Nasal septal granuloma: Code(s): J34.89 - Other specified disorders of nose and nasal sinuses Status: Acute Assessment and Plan: Plan is for operating room transnasal excision of intranasal right-sided granuloma. Will need suction Bovie will need small bipolar will need nasal specula septoplasty type instruments. Risks were discussed the patient including bleeding infection damage to surrounding structures need for further procedures. Recurrent. Septal perforation. Need for pain medication. Need for time off work. Postoperative bleeding. Patient
[2021-10-11] MEDS: LACTATED RINGERS 1,000 ML 30 ML IV CONT (06:56)
[2021-10-11 06:57] VITALS: BP 126/74; PULSE 78; RESP 16; TEMP 36.3; O2SAT 100
--- NOTE | 2021-10-11 07:11 | WPDHPUPDATE1 ---
History and Physical Update Update Date/Time: 10/11/21 07:11 History and Physical has been reviewed, including an updated exam of the patient. There are NO changes in the patient's condition. Risks, benefits, and alternatives have been discussed and questions answered. Patient agrees to proceed with procedure.
[2021-10-11] MEDS: OXYMETAZOLINE HCL 0.05% NAS 15 ML BTL (*BKC) 1 SPRAY NASAL (07:31)
[2021-10-11] MEDS: MUPIROCIN 2% OINT 22 GM TUBE 1 APPLIC TOPICAL (07:38)
[2021-10-11] MEDS: LIDO 1%/EPINEPHRINE 1:100,000 50 ML VIAL 10 ML INFILTRATE (07:39)
[2021-10-11 07:45] VITALS: BP 96/50; PULSE 57; RESP 19; TEMP 36.6; O2SAT 96
--- NOTE | 2021-10-11 07:54 | W.PM.PROC2 ---
Procedure Note - Detailed Date of Procedure 10/11/21 Pre-op Diagnosis right nasal septal lesion Post-op Diagnosis Same Procedure Performed Excision of right septal lesion intranasal Surgeon Berny Glez MD Anesthesia General Indications See above Findings Right anterior septal lesion decreased in size from previous exam consistent with granuloma pyogenic successful removal Description of Procedure Patient identified consent verified in preop. Patient brought to operating room. Time-out performed. General anesthesia induced, endotracheal tube secured in airway and taped to left lower lip. Patient prepped and draped. Second time-out performed. Crust removed from anterior nasal septum using nasal speculum and headlight. Afrin-soaked pledgets placed allowed to sit for 5 minutes. 1 cc of 1% lidocaine with 1 100,000 parts epinephrine injected deep to the lesion in the submucoperichondrial plane on the right anterior septum. The lesion was then gently removed with very gentle bipolar electrocautery at a setting of 5. Lesion sent for pathologic analysis. The area was then cauterized at its base using bipolar electrocautery at a setting of 5 in 10. No bleeding was noted. Afrin-soaked pledgets were again used to rub the area to see if any bleeding could be induced. Hemostasis was excellent. Mupirocin antibiotic ointment was then placed over the area. All the instruments removed from the operative area. Care the patient was turned over to Anesthesiology. Total blood loss less than 1 cc. I performed all dictated portions. Estimated Blood Loss 1 Drains No Packing No Pathology None sent Complications No immediate complications Condition Stable Disposition PACU
[2021-10-11 08:00] VITALS: BP 117/65; PULSE 64; RESP 12; O2SAT 99
[2021-10-11 08:05] VITALS: BP 117/72; PULSE 55; RESP 14
[2021-10-11 08:35] VITALS: BP 105/55; PULSE 58; RESP 14
== END 2021-10-11 08:47 | disposition home or self-care (01) ==
PROVIDERS: PCP Nurse Practitioner Adult Health; Visit Provider Otolaryngology
PROC: (CPT 30117; principal; 2021-10-11 07:30)
DX: J34.89 Other specified disorders of nose and nasal sinuses (principal); L98.0 Pyogenic granuloma; F41.9 Anxiety disorder, unspecified; J45.909 Unspecified asthma, uncomplicated; F17.210 Nicotine dependence, cigarettes, uncomplicated; E66.9 Obesity, unspecified; Z68.33 Body mass index [BMI] 33.0-33.9, adult
CPT/HCPCS: 30117; 88305; A9270; C9803; J0330; J1100; J2405; J2704; J3010; J7120; U0003; U0005

== ENCOUNTER 2021-12-03 07:44 | Emergency (ER) | payer BC, SELFPAY ==
[2021-12-03 07:51] VITALS: BP 140/77; PULSE 73; RESP 16; TEMP 37; O2SAT 99
--- NOTE | 2021-12-03 09:13 | ED.EYEPROB ---
HPI - Eye Problem General Chief complaint: Eye Problems Stated complaint: eyes swelling Time Seen by Provider: 12/03/21 07:53 History of Present Illness HPI Narrative: 26-year-old female presenting to the emergency department for evaluation of facial swelling. Patient states she did receive a sunburn a few days ago. Patient does have some blistering from the sunburn on her forehead and on her nose. Patient woke up this morning he did have some swelling around her left eye. Patient also has swelling around her right eye as well. Patient denies any difficulty breathing or swallowing. Patient has no swelling of tongue lips or airway. Patient denies any associated nausea or vomiting. Patient denies any abdominal. Reports he did have sun block on at the time. Patient does have a history of gestational diabetes. Related Data Allergies Allergy/AdvReac Type Severity Reaction Status Date / Time codeine AdvReac Mild Nausea and Verified 12/03/21 07:48 Vomiting Review of Systems Review of Systems: CONSTITUTIONAL: Denies fever, chills, or sweats. EYES: Denies any visual field changes. See HPI ENT: Denies rhinorrhea, congestion, sore throat, or otalgia. CARDIOVASCULAR: Denies chest pain, palpitations, or edema. RESPIRATORY: Denies cough or dyspnea. GASTROINTESTINAL: Denies abdominal pain, nausea, vomiting, or diarrhea. GENITOURINARY: Denies dysuria or hematuria. SKIN: See HPI MUSCULOSKELETAL: Denies back pain, joint pain, or myalgia. NEUROLOGIC: Denies headache, numbness, or weakness. [facility] Past Medical History Medical History Anxiety Asthma Vaginal delivery x1 Surgical History Surgical History S/P hernia surgery S/P tonsillectomy Family History Family History Mother Depression Cervical cancer Grandparent Malignant neoplasm of prostate Multiple myeloma Social History Social History Years smoked: 8 Smoking status: Current every day smoker Tobacco type: cigarettes Second hand tobacco smoke exposure: No Alcohol intake: current Drinks per week: 4 Substance use: never Substance use type: does not use Spiritual care concerns: No Exam Narrative: APPEARANCE: Well appearing, no pain, no distress, well-nourished. HEAD: normocephalic, atraumatic. EYES: PERRLA/EOMI, conjunctivae clear. Left upper eyelid edema. No pain with movement of the eye. No visual field change. Edema of the right upper eyelid to a smaller extent. NOSE: Normal no drainage THROAT: Pharynx clear, no exudate. NECK: Supple. No adenopathy, no masses. RESPIRATORY: Airway patent, respirations nonlabored. Clear to auscultation bilaterally, no rales, rhonchi, wheezing. CARDIOVASCULAR: Regular rate and rhythm without murmurs rubs or gallops. ABDOMINAL: Soft, nontender, nondistended, normal bowel sounds MUSCULOSKELETAL: Moves all extremities. NEURO: Alert. Cranial nerves II through XII intact. Grossly intact SKIN: Warm, dry. Normal Color. Some blistering skin over the nose and forehead Course Course Emergency Course: Patient had taken Kathrin at home. Patient will be started on prednisone. Patient was warned of the side effects of prednisone including elevated blood sugar. Patient was advised to closely monitor her blood sugar. I felt prednisone was justified due to the facial swelling. Patient was advised on reasons to return to the emerge department. Concerns were addressed. Vital Signs Vital signs: Vital Signs Temperature 98.6 F 12/03/21 07:51 Pulse Rate 73 12/03/21 07:51 Respiratory Rate 16 12/03/21 07:51 Blood Pressure 140/77 12/03/21 07:51 Pulse Oximetry 99 12/03/21 07:51 Oxygen Delivery Room Air 12/03/21 07:51 Temperature 98.6 F 12/03/21 07:51 Pulse Rate
[2021-12-03] MEDS: predniSONE 40 MG, predniSONE 10 MG 50 MG PO (09:34)
== END 2021-12-03 09:39 | disposition home or self-care (01) ==
PROVIDERS: Emergency Provider Emergency Medicine; PCP Nurse Practitioner Adult Health
DX: L55.1 Sunburn of second degree (principal); R60.9 Edema, unspecified; J45.909 Unspecified asthma, uncomplicated; F17.210 Nicotine dependence, cigarettes, uncomplicated
CPT/HCPCS: 99283; J7512

== ENCOUNTER 2022-03-11 13:24 | Outpatient (CLI) | payer BC, SELFPAY ==
--- NOTE | ~2022-03-11 | US_ITS ---
EXAMINATION: US OB <=14 wk fetus w TV DATE: 03/11/2022 14:19 INDICATION: First trimester dating and viability assessment TECHNIQUE: Real-time pelvic transabdominal and transvaginal ultrasound was performed. COMPARISON: None. FINDINGS: The uterus measures 9.3 x 6 x 8 cm. There is an intrauterine gestational sac. A yolk sac i s identified. heart motion is identified measuring 170 beats per minute (bpm) by M-mode Doppler . The crown rump length measures 2 cm, which correlates with an estimated gestational age of 8 weeks and 4 day(s) (+/-) 5 day(s). The right ovary measures 6 x 3 x 3 cm. The left ovary measures 4.1 x 2.7 x 3.2 cm. There is normal va scular flow in the ovaries. There is no free fluid in the pelvis. IMPRESSION: 1. Live intrauterine with an estimated gestational age of 8 weeks and 4 day(s) (+/-) 5 day( s) and an estimated delivery date of 10/17/2022. Reviewed, dictated and finalized at location B. IMPRESSION: 1. Live intrauterine with an estimated gestational age of 8 weeks and 4 day(s) (+/-) 5 day(s) and an estimated delivery date of 10/17/2022.
== END 2022-03-11 13:25 | disposition home or self-care (01) ==
LOC: ANHIMG 13:26
PROVIDERS: PCP Nurse Practitioner Adult Health; Visit Provider Obstetrics & Gynecology
DX: O36.80X0 Pregnancy with inconclusive fetal viability, not applicable or unspecified (principal); Z3A.08 8 weeks gestation of pregnancy
CPT/HCPCS: 76801; 76817

== ENCOUNTER 2022-08-11 14:25 | Outpatient (CLI) | payer BC, SELFPAY ==
[2022-08-11 15:10] LABS: Basophils Percent Auto 0.4 % (0.2-1.2); Eosinophils Absolute Auto 0.2 K/mm3 (0-0.3); Eosinophils Percent Auto 1.8 % (0-4.4); Hematocrit 37.1 % (37.0-47.0); Immature Granulocyte Absolute 0.08 K/mm3 (0.00-0.031); Immature Platelet Fraction Pct 20.7 % (0.9-11.2); Lymphocytes Percent Auto 22.8 % (18.3-44.2); Mean Corpuscular HGB Conc 32.3 g/dl (32-36); Mean Corpuscular Volume 89.6 fl (80-100); Mean Platelet Volume 13.2 fl (7.4-10.4); Monocytes Absolute Auto 0.5 K/mm3 (0.1-0.6); Monocytes Percent Auto 5.6 % (2.6-8.5); Neutrophils Absolute Auto 5.7 K/mm3 (1.3-6.7); Neutrophils Percent Auto 68.4 % (45.5-73.1); Platelet Count Result 183 k/mm3 (150-375); Red Blood Count 4.14 M/mm3 (4.2-5.4); Red Cell Distribution Width 14.1 % (11.5-14.5); White Blood Count 8.3 K/mm3 (4.5-10.0)
== END 2022-08-11 14:26 | disposition home or self-care (01) ==
LOC: ANHLAB 14:27
PROVIDERS: PCP Nurse Practitioner Adult Health; Visit Provider Obstetrics & Gynecology
DX: Z34.90 Encounter for supervision of normal pregnancy, unspecified, unspecified trimester (principal); Z3A.00 Weeks of gestation of pregnancy not specified
CPT/HCPCS: 36415; 85025; 85055

== ENCOUNTER 2022-09-10 14:01 | Outpatient (CLI) | payer BC, SELFPAY ==
[2022-09-10 15:38] LABS: HIV 1/2 Ab P24 Ag Result Negative (Negative)
[2022-09-11 15:56] LABS: Rapid Plasma Reagin Non-Reactive (NonReactive)
== END 2022-09-10 14:02 | disposition home or self-care (01) ==
LOC: ANHLAB 14:01
PROVIDERS: Visit Provider Obstetrics & Gynecology
DX: Z34.03 Encounter for supervision of normal first pregnancy, third trimester (principal); Z3A.00 Weeks of gestation of pregnancy not specified
CPT/HCPCS: 36415; 86592; 86703; G0432

== ENCOUNTER 2022-10-12 16:57 | Inpatient (IN) | payer BC, SELFPAY ==
[2022-10-12] VITALS (14 sets, daily range): BP systolic 89–144; BP diastolic 35–92; PULSE 67–109; TEMP 36.6–36.8; BMI 40.3
[2022-10-12 18:40] LABS: Glucose Point of Care 66 mg/dl (65-105)
[2022-10-12 19:00] LABS: Basophils Absolute Auto 0.1 K/mm3 (0.0-0.1); Basophils Percent Auto 0.7 % (0.2-1.2); Eosinophils Absolute Auto 0.1 K/mm3 (0-0.3); Eosinophils Percent Auto 1.4 % (0-4.4); Hemoglobin 12.3 g/dL (12.0-15.0); Immature Granulocyte Absolute 0.07 K/mm3 (0.00-0.031); Immature Granulocyte Percent A 0.8 % (0-0.5); Immature Platelet Fraction Pct 23.9 % (0.9-11.2); Lymphocytes Absolute Auto 2.24 K/mm3 (0.9-3.2); Lymphocytes Percent Auto 25.3 % (18.3-44.2); Mean Corpuscular HGB Conc 33.2 g/dl (32-36); Mean Corpuscular Hemoglobin 29.4 pg (26-34); Mean Corpuscular Volume 88.3 fl (80-100); Mean Platelet Volume 13.6 fl (7.4-10.4); Monocytes Absolute Auto 0.6 K/mm3 (0.1-0.6); Monocytes Percent Auto 6.7 % (2.6-8.5); Neutrophils Absolute Auto 5.8 K/mm3 (1.3-6.7); Neutrophils Percent Auto 65.1 % (45.5-73.1); Platelet Count Result 164 k/mm3 (150-375); Red Blood Count 4.19 M/mm3 (4.2-5.4); Red Cell Distribution Width 13.7 % (11.5-14.5); White Blood Count 8.9 K/mm3 (4.5-10.0)
[2022-10-12] MEDS: LACTATED RINGERS 1,000 ML 125 ML IV CONT (19:24)
[2022-10-12] MEDS: DINOPROSTONE 10 MG VAG INSERT VAGINAL (19:24)
--- NOTE | 2022-10-12 19:28 | WPDANESEPP ---
Anes - Eval Pre Procedure Procedure: labor epidural Date/Time: 10/12/22 19:28 Pre Op Diagnosis: IOL Patient Data Age: 27 Gender: F Height: 1.57 m Weight: 100 kg Last Vital Signs Pulse 67 10/12/22 19:01 BP 103/52 L 10/12/22 19:01 O2 Del Method Room Air 10/12/22 17:41 Allergies Allergy/AdvReac Type Severity Reaction Status Date / Time codeine AdvReac Mild Nausea and Verified 10/07/22 09:32 Vomiting Home Medications Medication Instructions Recorded Confirmed Type prenat.vits,ana maria,oph-ghks-jnqum 1 tablet PO DAILY 03/05/22 09/16/22 History blood sugar diagnostic (Blood #120 ea 04/09/22 07/05/22 Rx Glucose Test strips) lancets #200 ea 04/09/22 07/05/22 Rx insulin detemir U-100 100 unit/mL 28 unit subcut QAM AND QHS 07/07/22 09/16/22 History subcutaneous solution (Levemir U-100 Insulin) insulin lispro-aabc 100 unit/mL 4 unit subcut TID 10/12/22 10/12/22 History subcutaneous pen (Lyumjev KwikPen U-100 Insulin) Laboratory Tests 10/12/22 10/12/22 10/12/22 17:49 18:35 18:49 WBC 8.9 K/mm3 K/mm3 (4.5-10.0) RBC 4.19 M/mm3 L M/mm3 (4.2-5.4) Hgb 12.3 g/dL g/dL (12.0-15.0) Hct 37.0 % % (37.0-47.0) MCV 88.3 fl fl (80-100) MCH 29.4 pg pg (26-34) MCHC 33.2 g/dl g/dl (32-36) RDW 13.7 % % (11.5-14.5) Plt Count 164 k/mm3 k/mm3 (150-375) MPV 13.6 fl H fl (7.4-10.4) Immature Gran % (Auto) 0.8 % H % (0-0.5) Neut % (Auto) 65.1 % % (45.5-73.1) Lymph % (Auto) 25.3 % % (18.3-44.2) [place] % (Auto) 6.7 % % (2.6-8.5) Eos % (Auto) 1.4 % % (0-4.4) Baso % (Auto) 0.7 % % (0.2-1.2) Lymph # (Auto) 2.24 K/mm3 K/mm3 (0.9-3.2) [place] # (Auto) 0.6 K/mm3 K/mm3 (0.1-0.6) Eos # (Auto) 0.1 K/mm3 K/mm3 (0-0.3) Baso # (Auto) 0.1 K/mm3 K/mm3 (0.0-0.1) Abs Immat Gran (auto) 0.07 K/mm3 H K/mm3 (0.00-0.031) Absolute Neuts (auto) 5.8 K/mm3 K/mm3 (1.3-6.7) Absolute Nucleated RBC 0.0 K/mm3 K/mm3 (0.0-0.012) Nucleated RBC % 0.0 % % (0.0-0.2) % Immature Plt Fraction 23.9 % H % (0.9-11.2) POC Capillary Glucose 66 mg/dl mg/dl (65-105) RPR Pending Patient hx anesthesia problems: none Family hx anesthesia problems: none Results Review: All pre-operative results and documents have been reviewed as part of the pre-operative evaluation. [facility] Past Medical History Medical History Anxiety Asthma Vaginal delivery x1 Surgical History Surgical History S/P hernia surgery S/P tonsillectomy Family History Family History Mother Depression Cervical cancer Grandparent Malignant neoplasm of prostate Multiple myeloma Social History Social History Smoking status: Never smoker Tobacco type: cigarettes Second hand tobacco smoke exposure: No Additional smoking assessment comments: Stopped when she found out she was Alcohol intake: current Drinks per week: 4 Substance use: never Substance use type: does not use Lack of Transportation: No Lack of Food: Never True Current Housing: I Do Not Have Housing Concerned About Future Housing: No Difficulty Paying Gas/Electric Bills: No Difficulty Paying for Meds: No Currently Unemployed: No Education: High School Diploma/GED Difficulty w/ Childcare or Family Care: No Living arrangements: with family Spiritual care concerns: No Exam Day of Procedure 10/12/22 19:28 Patient weight: morbidly obese Heart: regular rate and rhythm Lungs: normal air movement Neurological: alert and orie
[2022-10-12] MEDS: ZOLPIDEM TARTRATE (*CRX) 5 MG TABLET 10 MG PO (22:15)
[2022-10-12] MEDS: ACETAMINOPHEN 500 MG TABLET PO (22:15)
[2022-10-13] VITALS (64 sets, daily range): BP systolic 55–138; BP diastolic 15–102; PULSE 66–168; RESP 16–18; TEMP 36.6–37; O2SAT 96–100
[2022-10-13] MEDS: LACTATED RINGERS 1,000 ML 125 ML IV CONT ×2 (00:30→02:06)
--- NOTE | 2022-10-13 01:55 | PM.IMHP ---
H&P: HPI History of Present Illness Date/Time: 10/13/22 01:55 Chief Complaint: Medical induction of labor Narrative: She is a 27 y/o at 39 2/7 weeks by edc of 10/17/22 established by first trimester ultrasound which was not consistent with unsure LMP. PNC significant for GDM, insulin controlled. She has been getting surveillance testing which has been reassuring and serial ultrasounds for growth. Labs reviewed. GBS neg. Last cervical exam int os closed. Discussed low dose pitocin/cervidil. She has been recommended for induction of labor at 39 weeks. She has been informed of risk benefits of induction and agrees to induction. Review of Systems Review of Systems: All systems reviewed & are unremarkable except as noted in HPI and below Constitutional: Constitutional: Reports no additional constitutional complaints and Denies headache(s) Eyes: Eyes: Denies spots in vision ENT: Reports system reviewed and no additional complaints, except as documented and Denies headache(s) Cardiovascular: Cardiovascular: Denies chest pain and Denies dyspnea Respiratory: Respiratory: Denies dyspnea Gastrointestinal: Gastrointestinal: Reports no additional gastrointestinal complaints Genitourinary: Genitourinary: Reports amenorrhea Musculoskeletal: Musculoskeletal: Reports no additional musculoskeletal complaints Integumentary/Breasts: Skin/Breast: Denies breast mass and Denies rash Neurologic: Denies headache(s) Psychiatric: Psychiatric: Reports no additional psychiatric complaints [facility] Past Medical History Medical History Anxiety Asthma Vaginal delivery x1 Surgical History Surgical History S/P hernia surgery S/P tonsillectomy Family History Family History Mother Depression Cervical cancer Grandparent Malignant neoplasm of prostate Multiple myeloma Social History Social History Smoking status: Never smoker Tobacco type: cigarettes Second hand tobacco smoke exposure: No Additional smoking assessment comments: Stopped when she found out she was Alcohol intake: current Drinks per week: 4 Substance use: never Substance use type: does not use Lack of Transportation: No Lack of Food: Never True Current Housing: I Do Not Have Housing Concerned About Future Housing: No Difficulty Paying Gas/Electric Bills: No Difficulty Paying for Meds: No Currently Unemployed: No Education: High School Diploma/GED Difficulty w/ Childcare or Family Care: No Living arrangements: with family Spiritual care concerns: No Meds Home Medications and Allergies Home Medications Medication Instructions Recorded Confirmed Type prenat.vits,ana maria,abt-jjjk-lldeq 1 tablet PO DAILY 03/05/22 09/16/22 History blood sugar diagnostic (Blood #120 ea 04/09/22 07/05/22 Rx Glucose Test strips) lancets #200 ea 04/09/22 07/05/22 Rx insulin detemir U-100 100 unit/mL 28 unit subcut QAM AND QHS 07/07/22 09/16/22 History subcutaneous solution (Levemir U-100 Insulin) insulin lispro-aabc 100 unit/mL 4 unit subcut TID 10/12/22 10/12/22 History subcutaneous pen (Lyumjev KwikPen U-100 Insulin) Allergies Allergy/AdvReac Type Severity Reaction Status Date / Time codeine AdvReac Mild Nausea and Verified 10/07/22 09:32 Vomiting Vital Signs Vital Signs - 24 hr 10/12/22 17:13 10/12/22 17:16 10/12/22 17:31 Temperature Pulse Rate 76 81 76 Blood Pressure 121/63 111/60 113/54 L Pulse Oximetry Oxygen Delivery 10/12/22 19:01 10/12/22 19:30 10/12/22 20:02 Temperature 97.8 F Pulse Rate 67 106 H Blood Pressure 103/52 L 92/68 L Pulse Oximetry Oxygen Delivery 10/12/22 20:31 10/12/22 21:02 10/12/22 20:30 Temperature 98 F P
--- NOTE | 2022-10-13 01:55 | PM.OBPRVD ---
OB - Delivery Note Procedure Delivery date: 10/13/22 Procedure: spontaneous vaginal delivery Events: Gestational Diabetes Induction method: Per Pitocin Protocol Delivery monitor: External FHT Route of delivery: Laceration Description: None Quantitative Blood Loss (ml): 150 Anesthesia type: Epidural Disposition: Floor Narrative: She was admitted Medical induction of labor for gestational diabetes. At her last exam her cervix was unfavorable when she was admitted she was 2 cm. She was started on Pitocin. She had spontaneous rupture of membranes clear and then she was 7 cm she progressed to complete. At 7 she had an epidural placed and after it was placed the infant was at the perineum. There was bradycardia to the 50s and she pushed and delivered the by the nurse while I was on route. There was other loose nuchal cord which was manually reduced by the nurse. infant was vigorously crying upon delivery. I delivered the placenta Which was intact. There were no lacerations. EBL was 150 cc. Reading Baby Date of : 10/13/22 Time of : 01:35 Weeks of gestation at delivery: 39 gender: Female Weight (pounds): 6 Weight (ounces): 15 presentation: vertex Placenta delivery description: Spontaneous Cord Vessel Description: 3 Vessels, Nuchal Cord, Loose and Clamped/Cut AMG Delivery Billing Delivery Delivery: Delivery Charge
[2022-10-13] MEDS: PHENYLEPHRINE 1,000 MCG/10 ML SYRINGE 100 MCG IV PUSH (02:06)
[2022-10-13] MEDS: OXYTOCIN 30 UNITS/NS 500 ML 30 UNITS/500 ML BAG 999 UNITS IV CONT (02:07)
[2022-10-13] MEDS: OXYTOCIN 30 UNITS/NS 500 ML 30 UNITS/500 ML BAG 125 UNITS IV CONT (02:18)
[2022-10-13 02:27] LABS: Glucose Point of Care 138 mg/dl (65-105)
--- NOTE | 2022-10-13 04:20 | OBPPTRN ---
Patient transferred to post room #281 via wheelchair. Support person present. Oriented to unit, room, information board, rooming in, admission packet and security measures. Patient verbalizes understanding.
[2022-10-13] MEDS: WITCH HAZEL 40 PADS 1 PAD TOPICAL (05:02)
[2022-10-13] MEDS: BENZOCAINE 20% AER SPR (*SP) 56 GM CAN 1 SPRAY TOPICAL (05:02)
[2022-10-13] MEDS: DOCUSATE SODIUM 100 MG CAPSULE PO (07:41)
[2022-10-13 09:40] LABS: Rapid Plasma Reagin Non-Reactive (NonReactive)
[2022-10-13] MEDS: ZOLPIDEM TARTRATE (*CRX) 5 MG TABLET 10 MG PO (18:54)
[2022-10-14 03:24] VITALS: BP 101/62; PULSE 65; RESP 16; TEMP 36.9; O2SAT 95
[2022-10-14 04:53] LABS: Hematocrit 36.3 % (37.0-47.0); Hemoglobin 11.8 g/dL (12.0-15.0)
[2022-10-14 07:45] VITALS: BP 128/72; PULSE 71; RESP 16; TEMP 36.8; O2SAT 99
[2022-10-14] MEDS: IBUPROFEN 600 MG TABLET PO (08:35)
[2022-10-14] MEDS: DOCUSATE SODIUM 100 MG CAPSULE PO (08:35)
[2022-10-14] MEDS: MULTIVIT/MIN/PREN/FOL AC/IRON TABLET 1 TAB PO (08:35)
--- NOTE | 2022-10-14 09:03 | PM.OBPNVD ---
OB - PN: Subj Subjective Date/time seen: 10/14/22 09:03 Patient comments: no complaints, pain well controlled, tolerating diet and other (Decreasing lochia.) baby status: doing well and nursing well OB - PN: Obj Data Labs 10/14/22 03:39 Labs: Laboratory Results - last 24 hr 10/12/22 10/14/22 18:49 03:39 Hgb 11.8 L Hct 36.3 L RPR Non-reactive OB - PN A/P Assessment and Plan (1) Delivery normal: Code(s): O80 - Encounter for full-term uncomplicated delivery Status: Acute Plan day: 1 Plan: routine care Comments: Patient doing well. She request discharge today. Discharge precautions discussed. Time Spent With Patient Time: Total time spent is greater than 50% in coordination of care (as documented) at patient's floor/unit and/or counseling patient: Exam Psych: Affect: normal affect Other: Abd: fundus firm below umbilicus, nontender Perineum: healing Ext: nontender
--- NOTE | 2022-10-14 14:15 | PC.NURSE ---
1100 -Primary RN reported that mother has decided to pump/feed without pain and declines needing consult.
[2022-10-15 11:32] VITALS: BP 117/72; PULSE 65; RESP 20; TEMP 36.8; O2SAT 98
--- OUTSIDE RECORDS SUMMARY | 2022-10-22 04:46 | XMS_ITS | Clinical Summary ---
Author Name Unknown Address [address], [place] Phone Organization [facility] Address [address], [place] Phone Care Team Providers Care Escalator Constructor Name Role Phone ELIAS LEE MD Primary Care Provider [phone] Reason for Visit and Chief Complaint PELVIC W/TVT Problems Includes: Problems addressed during this encounter and other active Problems All Visits Onset Date Resolved Date Provider Condition S tatus Polycystic Ovarian Syndrome (Pcos) 08/01/2015 ASHLYN GRIFFITH RN [facility] Active Last Documented On 08/01/2015 1:27PM ; [facility] Note: Unchanged Plan of Treatment No Plan of Treatment Recorded Assessments Includes: Assessments from this encounter No Assessments Recorded Medical Equipment - Implanted Devices Includes: Current Devices No Medical Equipment Recorded Medications Administered Includes: Administered Medications from this encounter No Administered Medications Recorded Results Includes: Results discussed during this encounter No Results Recorded For Specified Dates History of Present Illness Includes: History of Present Illness from this encounter No History of Present Illness Recorded Social History No Social History Recorded - Smoking Status Unknown Medical History Includes: Medical History addressed during this encounter No Medical History Recorded Family History Includes: Family History addressed during this encounter No Family History Recorded Review of Systems Includes: Review of Systems from this encounter No Review of Systems Recorded Mental
--- OUTSIDE RECORDS SUMMARY | 2022-10-22 04:46 | XMS_ITS ---
Author Name Unknown Address [address], [place] Phone Organization [facility] Address [address] [place] [address] Phone Care Team Providers Care Associate Dean Of Students Name Role Phone ELIAS LEE MD Primary Care Provider [phone] Problems Includes: Active, inactive, and resolved Problems All Visits Onset Date Resolved Date Provider Condition S tatus Polycystic Ovarian Syndrome (Pcos) 08/01/2015 ASHLYN KOLB Active Last Documented On 08/01/2015 1:27PM ; [facility] Note: Unchanged Plan of Treatment Findings Encounter Date Ordered Clinical summary pro vided to patient WELL WOMAN EXAM with ASHLYN KOLB 02/29/2020
--- OUTSIDE RECORDS SUMMARY | 2022-10-22 04:46 | XMS_ITS | Clinical Summary ---
Author Name Unknown Address [address], [place] Phone Organization [facility] Address [address], [place] Phone Care Team Providers Care Accounting Teacher Name Role Phone ELIAS LEE MD Primary Care Provider [phone] Reason for Visit and Chief Complaint Pt presents for problem in addition to annual exam no cycle x 93 days d/t PCOS and no rx. Last coitus 4 days ago, unprotected. Not attempting conception, not preventing conception, gynecologic annualexam - The Chief Complaint is: Well Woman Exam Problems Includes: Problems addressed during this encounter and other active Problems Current Visit Onset Date Resolved Date Provider Conditio n Status Polycystic Ovarian Syndrome (Pcos) 08/01/2015 ASHLYN BLACKBURN Active Last Documented On 08/01/2015 1:27PM ; [facility] Note: Unchanged Plan of Treatment - Weight loss diet - Last Documented On 02/29/2020 9:37AM ; [facility] - Clinical summary provided to patient - Last Documented On 02/29/2020 9:37AM ; [facility] PT TO CALL WITH ANY CHANGE IN STATUS ALL QUESTIONS ANSWERED WITH UNDERSTANDING VERBALIZED BY PT. - Last Documented On 02/29/2020 9:37AM ; [facility] Pending Tests Order Diagnosis Results Due Ordering P rovider Radiology @ other - Ultrasound Pelvic w/TVT (TransVag) Irregular menstruation, unspecified 03/14/20 ASHLYN GRIFFITH RN [facility]
--- OUTSIDE RECORDS SUMMARY | 2022-10-22 04:46 | XMS_ITS | Clinical Summary ---
Author Name Unknown Address [address], [place] Phone Organization [facility] Address [address] [place] [address] Phone Care Team Providers Care Regulatory Administrator Name Role Phone ELIAS LEE MD Primary Care Provider [phone] Reason for Visit and Chief Complaint CHART UPDATE Problems Includes: Problems addressed during this encounter and other active Problems Current Visit Onset Date Resolved Date Provider Conditio n Status Polycystic Ovarian Syndrome (Pcos) 08/01/2015 ASHLYN GRIFFITH RN [facility] Active Last Documented On 08/01/2015 1:27PM ; [facility] Note: Unchanged Plan of Treatment No Plan of Treatment Recorded Assessments Includes: Assessments from this encounter Findings - Polycystic Ovarian Syndrome (PCOS) - Last Documented On 09/11/2020 9:55AM ; [facility] - Polycystic Ovarian Syndrome (PCOS) - Last Documented On 09/11/2020 9:55AM ; [facility] Medical Equipment - Implanted Devices Includes: Current Devices No Medical Equipment Recorded Medications Includes: Medications discussed during this encounter and other current Medications Discontinued / Stopped on this date on 06/07/2020 Phentermine HCl 37.5 MG Oral Capsule Prov ider: Diagnosis:
--- OUTSIDE RECORDS SUMMARY | 2022-10-22 04:46 | XMS_ITS | Clinical Summary ---
Author Name Unknown Address [address], [place] Phone Organization [facility] Address [address], [place] Phone Care Team Providers Care Laborer Stores Name Role Phone ELIAS LEE MD Primary Care Provider [phone] Reason for Visit and Chief Complaint The Chief Complaint is: Med check, no cycle since February, taking Metformin in timely correct fashion. Last unprotected coitus 3 weeks ago, currently in a weight loss clinic and taking Phentermine rx'd by MD Problems Includes: Problems addressed during this encounter and other active Problems Current Visit Onset Date Resolved Date Provider Conditio n Status Polycystic Ovarian Syndrome (Pcos) 08/01/2015 ASHLYN GRIFFITH RN [facility] Active Last Documented On 08/01/2015 1:27PM ; [facility] Note: Unchanged Plan of Treatment Instructions to patient Instructions for patient ER if bleeding through reg. sized pad/tampon < 1 hour Last Documented On 0 3:17PM ; [facility] Instructions for patient ER if dizzy, vomiting or light-headed due to heavy bleeding Last Documented On 0 3:17PM ; [facility] Instructions for patient : p atient is to keep a menstrual diary to help with further evaluation and treatment Last Documented On 0 3:17PM ; [facility]
--- OUTSIDE RECORDS SUMMARY | 2022-10-22 04:46 | XMS_ITS | Clinical Summary ---
Author Name Unknown Address [address], [place] Phone Organization [facility] Address [address] [place] [address] Phone Care Team Providers Care Press Operator Automatic Name Role Phone ELIAS LEE MD Primary Care Provider [phone] Reason for Visit and Chief Complaint CHART UPDATE Problems Includes: Problems addressed during this encounter and other active Problems All Visits Onset Date Resolved Date Provider Condition S deniseus Polycystic Ovarian Syndrome (Pcos) 08/01/2015 ASHLYN GRIFFITH RN [facility] Active Last Documented On 08/01/2015 1:27PM ; [facility] Note: Unchanged Plan of Treatment No Plan of Treatment Recorded Assessments Includes: Assessments from this encounter No Assessments Recorded Medical Equipment - Implanted Devices Includes: Current Devices No Medical Equipment Recorded Medications Includes: Medications discussed during this encounter and other current Medications New / Renewed during this visit ASHLYN GRIFFITH RN [facility] on 03/26/2020 metFORMIN HCl 500 MG Oral Tablet Provider: ASHLYN GRIFFITH RN Meaghan P 90 day supply: 180 tablet, 0 refills Diagnosis: Polycystic ovarian syndrome One tablet twice a day [facility] [address] [phone] -
--- OUTSIDE RECORDS SUMMARY | 2022-10-22 04:46 | XMS_ITS ---
Care Plan - [facility] Created on: October 22, 2022 ROBBY TYLER : 1995 Sex: Female Author Name Unknown Address [address] [place] [address] Phone Organization [facility] Address [address] [place] [address] Phone Care Team Providers Care Contract Programmer Name Role Phone ELIAS LEE MD Primary Care Provider [phone]
--- NOTE | 2022-11-05 07:24 | PM.OBDSVD ---
DS: Admitting Diagnosis Discharge Date 10/14/22 Admitting Diagnosis Medical induction of labor DS: Discharge Diagnosis Discharge Diagnosis (1) Delivery normal: Code(s): O80 - Encounter for full-term uncomplicated delivery Status: Acute (2) Gestational diabetes: Code(s): O24.419 - Gestational diabetes mellitus in , unspecified control Status: Acute OB - DS: Summary OB Procedures : Ultrasound OB Procedures Intrapartum: Spontaneous Vag Delivery OB Procedures: : None Peripartum Data Delivery Method: Natural Vaginal complications: none Status at Discharge Functional status at discharge: independent ambulation Time Spent with Patient Time attestation: Total time spent providing and/or coordinating discharge services: Exam Const: General: cooperative Orientation/consciousness: oriented to person, oriented to place and oriented to time HENMT: Face/Nose/Sinus: Normal external nose present Eyes: General: appearance normal, both eyes and all related structures Resp: Effort & Inspection: normal respiratory effort GI: Inspection: normal to inspection Skin: General skin exam: normal color Neuro: General: oriented to person, oriented to place and oriented to time Extrem: General: normal to inspection and no calf tenderness Psych: Appearance: grossly normal Mental Status: mental status grossly normal Discharge Plan Discharge Attending physician on discharge: Sen Nuñze Consulting providers: Tona Crowley Discharging Clinician: Sen Nuñez Anticipated Discharge Date/Time: 10/14/22 09:40 Patient Disposition: Home, Self-Care Activity: may shower and pelvic rest Diet: regular Discharge Instructions: Pelvic rest for 4-6 weeks. May take over the counter Ibuprofen or Tylenol for pain. Call if saturating more than a pad an hour, leg redness, pain and swelling, temperature>100.4. No strenuous activity. Education: Mom and Baby Guide Given to: Mother Follow-Up: Call your delivering provider's office for an appointment to be seen in: 4 Weeks Mom and baby [facility] come [facility] for the follow-up appointment. Appointment Date/Time: October 15, 2022 at 11:00 am What to expect at your follow-up visit: Physical Assessment Call [phone] if you are unable to keep your appointment time. BREAST CARE: * Wear a snug supportive bra. * For engorgement discomfort: Breast Feeding/Pumping: * Apply warm moist washcloths * Express milk as needed to relieve engorgement * Wear loose clothing Bottle Feeding if not using breast pump: * May apply ice packs * For sore nipples: * Identify correct latch-on and/or flange size for breast pump * Apply warm moist washcloths before and after nursing * Air dry nipples after nursing * May apply Lansinoh cream to nipples PERINEAL CARE: * Until bleeding stops, use your brittney bottle after urinating * Change your pad frequently throughout the day * You may take sitz baths several times a day (fill your bathtub with warm water and soak for 20 minutes.) Do NOT bathe in the water * No tub baths until seen by your physician - You may shower ACTIVITY: * Rest as much as possible. * Do not exercise or lift anything heavier than your baby (such as laundry or other children.) * Avoid stairs or driving as much as possible. * Do not put anything into the vagina. No douching, tampons, or sexual activity until seen by physician. NOTIFY PHYSICIAN IF YOU HAVE ANY QUESTIONS OR IF ANY OF THE FOLLOWING SYMPTOMS OCCUR: * If your perineum becomes red, swollen, or more painful than what you have experienced in the hospital. * If your vaginal bleeding becomes foul smelling. * If your vaginal bleeding becomes more heavy than a period or if your bleeding changes from pink to bright red. How
== END 2022-10-14 11:40 | disposition home or self-care (01) | DRG 807 ==
LOC: ANHLDR 17:05 → ANHOB2 10-13 04:34
PROVIDERS: Admitting Provider Obstetrics & Gynecology; Visit Provider Obstetrics & Gynecology
DX: O24.429 Gestational diabetes mellitus in childbirth, unspecified control (principal); Z37.0 Single live birth; O76 Abnormality in fetal heart rate and rhythm complicating labor and delivery; O69.81X0 Labor and delivery complicated by cord around neck, without compression, not applicable or unspecified; O24.424 Gestational diabetes mellitus in childbirth, insulin controlled; O62.3 Precipitate labor; Z3A.39 39 weeks gestation of pregnancy
CPT/HCPCS: 36415; 82948; 85014; 85018; 85025; 85055; 86592; 86850; 86900; 86901; A9270; J2370; J2590; J2795; J7120

== ENCOUNTER 2023-02-16 09:40 | Outpatient (CLI) | payer BC, SELFPAY ==
[2023-02-16 10:19] LABS: Glucose Fasting 101 mg/dL
[2023-02-16 11:58] LABS: Glucose 1 Hour 155 mg/dL
[2023-02-16 13:12] LABS: Glucose 2 Hour 140 mg/dL
== END 2023-02-16 09:41 | disposition home or self-care (01) ==
LOC: ANHLAB 09:41
PROVIDERS: Visit Provider Obstetrics & Gynecology
DX: O24.419 Gestational diabetes mellitus in pregnancy, unspecified control (principal); Z3A.00 Weeks of gestation of pregnancy not specified
CPT/HCPCS: 36415; 82951

== ENCOUNTER 2023-08-17 09:22 | Outpatient (CLI) | payer BC, SELFPAY ==
--- NOTE | ~2023-08-17 | XR_ITS ---
Lumbosacral Spine: AP and lateral views Clinical History: Pain Findings: The normal lordotic curve is maintained. The vertebral bodies and posterior elements are i ntact. The intervertebral disc spaces are preserved. The sacroiliac joints are normally outlined. Impression: No significant abnormality. Reviewed, dictated and finalized at [facility]. INTMENT SCHEDULER Impression: No significant abnormality.
--- NOTE | ~2023-08-17 | XR_ITS ---
Thoracic spine: Clinical Indication: Back pain AP and lateral views were performed. No fracture is seen. There is normal alignment of the vertebrae. The intervertebral disc spaces appe ar normal. Paravertebral soft tissues appear normal. Impression: No significant abnormalities noted. Reviewed, dictated and finalized at [facility]. RMEDIATE ACCOUNTANT Impression: No significant abnormalities noted.
--- NOTE | ~2023-08-17 | XR_ITS ---
Cervical Spine: AP, lateral, open-mouth views Clinical History: Pain Findings: There is reversal normal cervical lordosis. The vertebral bodies and posterior elements melissa ear intact. The intervertebral disc spaces are well maintained. Pre-vertebral soft tissues are unrem arkable. Impression: Reversal of the normal cervical lordosis. Reviewed, dictated and finalized at [facility]. ENT MANAGER Impression: Reversal of the normal cervical lordosis.
== END 2023-08-17 09:23 | disposition home or self-care (01) ==
LOC: ANHBWCIMG 09:24
PROVIDERS: PCP Nurse Practitioner Adult Health; Visit Provider Nurse Practitioner Adult Health
DX: M54.2 Cervicalgia (principal); M54.9 Dorsalgia, unspecified
CPT/HCPCS: 72040; 72070; 72100

== ENCOUNTER 2024-01-06 08:13 | Outpatient (CLI) | payer BC, SELFPAY ==
[2024-01-06 18:40] LABS: Hematocrit 45.6 % (37.0-47.0); Hemoglobin 14.4 g/dL (12.0-15.0); Mean Corpuscular HGB Conc 31.6 g/dl (32-36); Mean Corpuscular Hemoglobin 28.6 pg (26-34); Mean Corpuscular Volume 90.7 fl (80-100); Mean Platelet Volume 12.5 fl (7.4-10.4); Platelet Count Result 327 k/mm3 (150-375); Red Blood Count 5.03 M/mm3 (4.2-5.4); Red Cell Distribution Width 13.4 % (11.5-14.5); White Blood Count 9.5 K/mm3 (4.5-10.0)
[2024-01-06 19:29] LABS: Alanine Aminotransferase 14 U/L (6-35); Albumin Level 4.8 g/dL (3.5-5.1); Alkaline Phosphatase 77 U/L (38-126); Anion Gap 12 mmol/L (4-12); Aspartate Amino Transferase 84 U/L (14-36); Bilirubin,Total 0.5 mg/dL (0.2-1.3); Blood Urea Nitrogen 10 mg/dL (7-17); Calcium 9.6 mg/dL (8.4-10.2); Carbon Dioxide 21 mmol/L (22-30); Chloride 105 mmol/L (98-107); Cholesterol 176 mg/dL (0-200); Estimated Glomerular Filt Rate > 60; Glucose 80 mg/dL (65-110); HDL Direct 43 mg/dL; Sodium 138 mmol/L (137-145); Triglycerides 182 mg/dL (<150)
[2024-01-06 19:40] LABS: LDL Cholesterol Direct 111 mg/dL
== END 2024-01-06 08:14 | disposition home or self-care (01) ==
PROVIDERS: PCP Nurse Practitioner Adult Health; Visit Provider Nurse Practitioner Adult Health
DX: Z13.9 Encounter for screening, unspecified (principal)
CPT/HCPCS: 36415; 80053; 80061; 83036; 84443; 85027

== ENCOUNTER 2024-05-13 09:23 | Outpatient (CLI) | payer BC, SELFPAY ==
[2024-05-13 09:39] LABS: Hematocrit 42.6 % (37.0-47.0); Mean Corpuscular HGB Conc 32.9 g/dl (32-36); Mean Corpuscular Volume 88.2 fl (80-100); Mean Platelet Volume 12.3 fl (7.4-10.4); Platelet Count Result 286 k/mm3 (150-375); Red Blood Count 4.83 M/mm3 (4.2-5.4); Red Cell Distribution Width 13.6 % (11.5-14.5)
[2024-05-13 09:48] LABS: Hemoglobin A1C 5.2 % (<5.7)
[2024-05-13 09:50] LABS: Alanine Aminotransferase 16 U/L (6-35); Albumin Level 4.7 g/dL (3.5-5.1); Alkaline Phosphatase 64 U/L (38-126); Anion Gap 10 mmol/L (4-12); Aspartate Amino Transferase 22 U/L (14-36); Bilirubin,Total 0.3 mg/dL (0.2-1.3); Blood Urea Nitrogen 15 mg/dL (7-17); Calcium 9.6 mg/dL (8.4-10.2); Carbon Dioxide 24 mmol/L (22-30); Chloride 103 mmol/L (98-107); Cholesterol 152 mg/dL (0-200); Estimated Glomerular Filt Rate > 60; Glucose 96 mg/dL (65-110); HDL Direct 45 mg/dL; Potassium 4.7 mmol/L (3.4-5.0); Sodium 137 mmol/L (137-145); Triglycerides 127 mg/dL (<150)
[2024-05-13 10:01] LABS: LDL Cholesterol Direct 83 mg/dL
== END 2024-05-13 09:24 | disposition home or self-care (01) ==
LOC: ANHLAB 09:24
PROVIDERS: PCP Nurse Practitioner Adult Health; Visit Provider Nurse Practitioner Adult Health
DX: R73.03 Prediabetes (principal)
CPT/HCPCS: 36415; 80053; 80061; 83036; 85027

== ENCOUNTER 2024-06-13 19:42 | Emergency (ER) | payer BC, SELFPAY ==
[2024-06-13 19:48] VITALS: BP 136/84; PULSE 82; RESP 16; TEMP 37.2; O2SAT 100
== END 2024-06-13 23:52 | disposition left against medical advice (07) ==
PROVIDERS: PCP Nurse Practitioner Adult Health
DX: H57.04 Mydriasis (principal)
CPT/HCPCS: 99199

== ENCOUNTER 2024-06-28 11:53 | Outpatient (CLI) | payer BC, SELFPAY ==
[2024-06-28 18:24] LABS: Add Urine Microscopic? YES; Appearance Urine Clear (Clear); Bacteria Urine 1+ /hpf; Bilirubin Urine Negative (Negative); Blood Urine 1+ (Negative); Color Urine Yellow (Yellow); Glucose Urine UA Negative (Negative); Ketones Urine Negative (Negative); Leukocyte Esterase Ur Negative LEU/UL (Negative); Nitrate Urine Negative (Negative); Non Pathogenic Casts 0-2; Protein Urine Negative (Negative); Specific Grav Ur 1.007 (1.001-1.035); Squamous Epithelial Cell Urine None Seen /hpf (Few); Urobilinogen Urine 0.2 mg/dL (<2.0); pH Urine 5.5 (5.0-9.0)
== END 2024-06-28 11:54 | disposition home or self-care (01) ==
LOC: ANHBWCLAB 11:54
PROVIDERS: PCP Nurse Practitioner Adult Health; Visit Provider Nurse Practitioner Adult Health
DX: R39.9 Unspecified symptoms and signs involving the genitourinary system (principal)
CPT/HCPCS: 81001; 87086; 87186

== ENCOUNTER 2024-09-13 15:54 | Emergency (ER) | payer BC, SELFPAY ==
--- NOTE | ~2024-09-13 | CT_ITS ---
CLINICAL INDICATION: Left lower quadrant pain. Nausea vomiting and diarrhea COMPARISON: None. TECHNIQUE: Multiple contiguous axial images of the abdomen and pelvis were performed following the ad ministration of with 100 mL Omnipaque-350 intravenous contrast The dose-length product (DLP) was 628.03 mGy-cm. Automated exposure control and iterative reconstruction technique were employed. FINDINGS/OBSERVATIONS: Visualized lower thorax: The bilateral lung bases are clear. The heart is of normal size, without pericardial effusion. Small hiatal hernia is present. Liver: The liver demonstrates homogeneous enhancement and is enlarged measuring 21 cm in longitudinal dimens ion. Gallbladder and biliary system: The gallbladder is only minimally distended, and otherwise unremarkable. Pancreas: The pancreas enhances homogeneously without ductal dilatation. Spleen: The spleen enhances homogeneously and is enlarged measuring 13.5 cm in longitudinal dimension. Kidneys: The bilateral kidneys enhance symmetrically without hydronephrosis or renal calculi. Adrenal glands: Unremarkable. Gastrointestinal tract: Fecal stasis within the colon. Appendix: The air-filled appendix is of normal caliber (axial series, images 124 through 130) Vasculature: Unremarkable. Lymph nodes: No pathologically enlarged or morphologically suspicious lymph nodes within the retroperitoneum or at the root of the mesentery. Pelvic structures: The bladder is distended, and otherwise unremarkable. The uterus is anteverted and anteflexed. Body wall and musculoskeletal: Small fat-containing umbilical hernia. No significant degenerative disease within the lower thoracic or lumbosacral spine. IMPRESSION: No acute pathology. Hepatosplenomegaly. Small fat-containing umbilical hernia. Reviewed, dictated and finalized at location A.
[2024-09-13 16:05] VITALS: BP 141/81; PULSE 82; RESP 16; TEMP 36.4; O2SAT 100
--- NOTE | 2024-09-13 16:11 | ED.NAVMDI ---
HPI - Nausea/Vomiting/Diarrhea General Chief complaint: Nausea/Vomiting/Diarrhea <Memo Obrien PA-C - Last Filed: 09/13/24 16:12> Stated complaint: Diarrhea x 5 days-black stool <Memo Obrien PA-C - Last Filed: 09/13/24 16:12> Time Seen by Provider: 09/13/24 19:41 <Memo Obrien PA-C - Last Filed: 09/13/24 16:12> Focused HPI: This is a 29-year-old female who presents to the ED for chief complaint of diarrhea x5 days. Endorses ?black stools? starting today. Denies taking Pepto-Bismol or iron supplement. Denies history of GI issues. States that she is having minimal abdominal pain. Denies urinary symptoms, fevers, chills, nausea, vomiting. GENERAL: Well-appearing, well-nourished, and in no acute distress. HEAD: Normocephalic, atraumatic. CHEST: Clear to auscultation. No respiratory distress. HEART: Regular rate and rhythm. NEURO: Alert and oriented x3. Patient screened in triage and initial orders placed. Additional care and disposition to be based upon diagnostic testing and treatment. <Memo Obrien PA-C - Last Filed: 09/13/24 16:12> Source: patient <Memo Obrien PA-C - Last Filed: 09/13/24 16:12> Mode of arrival: ambulatory <Memo Obrien PA-C - Last Filed: 09/13/24 16:12> Limitations: no limitations <Memo Obrien PA-C - Last Filed: 09/13/24 16:12> History of Present Illness HPI Narrative: Patient 29-year-old female who presents emergency department chief complaint of abdominal pain patient reports that been having diarrhea for the last 5 days reports her stool was dark reports that she has no prior history of GI issues reports that she had a bilirubin was sick recently reports that her symptoms have continued on the patient reports no vomiting denies fever <Davy Andrew MD - Last Filed: 09/13/24 21:41> Related Data Allergies/Adverse reactions: Allergies Allergy/AdvReac Type Severity Reaction Status Date / Time codeine AdvReac Mild Nausea and Verified 05/18/24 08:42 Vomiting Cock Roaches Allergy Unknown Unknown Uncoded 05/18/24 08:42 Dust mites Allergy Unknown Unknown Uncoded 05/18/24 08:42 <Memo Obrien PA-C - Last Filed: 09/13/24 16:12> Review of Systems Review of Systems: A 10 system review of systems was completed on the patient and is negative except for what is stated in the HPI. Nursing and ancillary documentation was reviewed. <Davy Andrew MD - Last Filed: 09/13/24 21:41> [facility] Past Medical History Medical History: Medical History Allergies Anxiety Vaginal delivery x1 Asthma <Memo Obrien PA-C - Last Filed: 09/13/24 16:12> Surgical History Surgical History: Surgical History S/P tonsillectomy S/P hernia surgery <Memo Obrien PA-C - Last Filed: 09/13/24 16:12> Family History Family History: Family History Mother Depression Cervical cancer Grandparent Malignant neoplasm of prostate Multiple myeloma <Memo Obrien PA-C - Last Filed: 09/13/24 16:12> Social History Social History: Social History Smoking status: Never smoker Tobacco type: cigarettes Second hand tobacco smoke exposure: No Additional smoking assessment comments: Stopped when she found out she was Alcohol intake: current Drinks per week: 4 Substance use: never Substance use type: does not use Lack of Transportation: No Lack of Food: Never True Current Housing: I Do Not Have Housing Concerned About Future Housing: No Difficulty Paying Gas/Electric Bills: No Difficulty Paying for Meds: No Currently Unemployed: No Education: High School Diploma/GED Difficulty w/ Childcare or Family Care: No Living arrangements: with family Gender identity (if verbalized by the patient): Female Spiritual care concerns: No Agree to blood products: Yes <Memo Obrien PA-C - Last Filed: 09/13/24 16:12> Exam Narrative: GENERAL: Well-appearing, well-nourished, and in no acute distress. HEAD: Normocephalic, atraumatic. EYES: PERRLA and EOMI. ENT: Nares clear, no rhinorrhea or epistaxis. Mucous membranes moist. NECK: Supple. CHEST: Clear to auscultation. No respiratory distress. HEART: Regular rate and rhythm. No murmur heard. Normal peripheral pulses. ABDOMEN: Soft, mild tenderness to palpation left lower quadrant, nondistended, normal active bowel sounds. EXTREMITIES: Normal range of motion. No edema. SKIN: Warm, dry, no rash. NEURO: No focal deficits. Alert and oriented x3. PSYCH: Normal mood and affect. <Davy Andrew MD - Last Filed: 09/13/24 21:41> Course Vital Signs Vital signs: Vital Signs Temperature 36.4 C 09/13/24 16:05 Pulse Rate 82 09/13/24 16:05 Respiratory Rate 16 09/13/24 16:05 Blood Pressure 141/81 H 09/13/24 16:05 Pulse Oximetry 100 09/13/24 16:05 Oxygen Delivery Room Air 09/13/24 16:05 Temperature 36.4 C 09/13/24 16:05 Pulse Rate 85 09/13/24 20:39 Respiratory Rate 16 09/13/24 20:39 Blood Pressure 128/82 09/13/24 20:39 Pulse Oximetry 99 09/13/24 20:39 Oxygen Delivery Room Air 09/13/24 16:05 <Memo Obrien PA-C - Last Filed: 09/13/24 16:12> Vital Signs Temperature 36.4 C 09/13/24 16:05 Pulse Rate 82 09/13/24 16:05 Respiratory Rate 16 09/13/24 16:05 Blood Pressure 141/81 H 09/13/24 16:05 Pulse Oximetry 100 09/13/24 16:05 Oxygen Delivery Room Air 09/13/24 16:05 Temperature 36.4 C 09/13/24 16:05 Pulse Rate 85 09/13/24 20:39 Respiratory Rate 16 09/13/24 20:39 Blood Pressure 128/82 03/18/25 20:39 Pulse Oximetry 99 09/13/24 20:39 Oxygen Delivery Room Air 09/13/24 16:05 <Davy Andrew MD - Last Filed: 09/13/24 21:41> MDM - Nausea/Vomiting/Diarrhea MDM Narrative Medical decision making narrative: Differential diagnosis includes diverticulitis, colitis, intra-abdominal infection, Laboratory studies were obtained on the patient showed normal CBC including normal hemoglobin electrolytes are within normal limits urinalysis showed no evidence UTI CT scan of the abdomen pelvis showed no acute abnormality Patient will be discharged home on a course of Bentyl and Zofran and she follow-up with her primary care provider <Davy Andrew MD - Last Filed: 09/13/24 21:41> Lab Data Result diagrams: 09/13/24 16:14 09/13/24 16:14 <Memo Obrien PA-C - Last Filed: 09/13/24 16:12> Labs: Lab Results 09/13/24 09/13/24 09/13/24 Range/Units 16:13 16:14 18:16 WBC 8.6 (4.5-10.0) K/mm3 RBC 5.08 (4.2-5.4) M/mm3 Hgb 14.5 (12.0-15.0) g/dL Hct 44.1 (37.0-47.0) % MCV 86.8 (80-100) fl MCH 28.5 (26-34) pg MCHC 32.9 (32-36) g/dl RDW 12.8 (11.5-14.5) % Plt Count 325 (150-375) k/mm3 MPV 11.9 H (7.4-10.4) fl Immature Gran % (Auto) 0.2 (0-0.5) % Neut % (Auto) 55.7 (45.5-73.1) % Lymph % (Auto) 32.4 (18.3-44.2) % Franklin % (Auto) 7.1 (2.6-8.5) % Eos % (Auto) 3.4 (0-4.4) % Baso % (Auto) 1.2 (0.2-1.2) % Lymph # (Auto) 2.80 (0.9-3.2) K/mm3 [place] # (Auto) 0.6 (0.1-0.6) K/mm3 Eos # (Auto) 0.3 (0-0.3) K/mm3 Baso # (Auto) 0.1 (0.0-0.1) K/mm3 Abs Immat Gran (auto) 0.02 (0.00-0.031) K/mm3 Absolute Neuts (auto) 4.8 (1.3-6.7) K/mm3 Absolute Nucleated RBC 0.000 (0.0-0.012) K/mm3 Nucleated RBC % 0.0 (0.0-0.2) % PT 13.2 (11.1-14.7) Seconds INR 1.0 APTT 28.4 (22.3-36.8) Seconds Sodium 139 (137-145) mmol/L Potassium 3.7 (3.4-5.0) mmol/L Chloride 104 (98-107) mmol/L Carbon Dioxide 24 (22-30) mmol/L Anion Gap 11 (4-12) mmol/L BUN 12 (7-17) mg/dL Creatinine 0.81 (0.7-1.0) mg/dL Estim Creat Clear Calc Not Reportable Estimated GFR > 60 (59 - ) Glucose 87 (65-110) mg/dL Calcium 9.6 (8.4-10.2) mg/dL Magnesium 1.9 (1.6-2.3) mg/dL Total Bilirubin 0.1 L (0.2-1.3) mg/dL AST 22 (14-36) U/L ALT 24 (6-35) U/L Alkaline Phosphatase 79 (38-126) U/L Total Protein 8.0 (6.3-8.2) g/dL Albumin 4.7 (3.5-5.1) g/dL Lipase 125 (23-300) U/L Urine Color (Yellow) Urine Appearance (Clear) Urine pH (5.0-9.0) Ur Specific [place] (1.001-1.035) Urine Protein (Negative) mg/dL Urine Glucose (UA) (Negative) mg/dL Urine Ketones (Negative) mg/dL Ur Blood (Man) (Negative) Urine Nitrate (Negative) Urine Bilirubin (Negative) Urine Urobilinogen (<2.0) mg/dL Leukocyte Esterase Rfl (Negative) CHIQUITA/UL POC Urine HCG, Qual Negative (Negative) 09/13/24 Range/Units 18:17 WBC (4.5-10.0) K/mm3 RBC (4.2-5.4) M/mm3 Hgb (12.0-15.0) g/dL Hct (37.0-47.0) % MCV (80-100) fl MCH (26-34) pg MCHC (32-36) g/dl RDW (11.5-14.5) % Plt Count (150-375) k/mm3 MPV (7.4-10.4) fl Immature Gran % (Auto) (0-0.5) % Neut % (Auto) (45.5-73.1) % Lymph % (Auto) (18.3-44.2) % [place] % (Auto) (2.6-8.5) % Eos % (Auto) (0-4.4) % Baso % (Auto) (0.2-1.2) % Lymph # (Auto) (0.9-3.2) K/mm3 [place] # (Auto) (0.1-0.6) K/mm3 Eos # (Auto) (0-0.3) K/mm3 Baso # (Auto) (0.0-0.1) K/mm3 Abs Immat Gran (auto) (0.00-0.031) K/mm3 Absolute Neuts (auto) (1.3-6.7) K/mm3 Absolute Nucleated RBC (0.0-0.012) K/mm3 Nucleated RBC % (0.0-0.2) % PT (11.1-14.7) Seconds INR APTT (22.3-36.8) Seconds Sodium (137-145) mmol/L Potassium (3.4-5.0) mmol/L Chloride (98-107) mmol/L Carbon Dioxide (22-30) mmol/L Anion Gap (4-12) mmol/L BUN (7-17) mg/dL Creatinine (0.7-1.0) mg/dL Estim Creat Clear Calc Estimated GFR (59 - ) Glucose (65-110) mg/dL Calcium (8.4-10.2) mg/dL Magnesium (1.6-2.3) mg/dL Total Bilirubin (0.2-1.3) mg/dL AST (14-36) U/L ALT (6-35) U/L Alkaline Phosphatase (38-126) U/L Total Protein (6.3-8.2) g/dL Albumin (3.5-5.1) g/dL Lipase (23-300) U/L Urine Color Yellow (Yellow) Urine Appearance Clear (Clear) Urine pH 5.5 (5.0-9.0) Ur Specific [place] 1.021 (1.001-1.035) Urine Protein Negative (Negative) mg/dL Urine Glucose (UA) Negative (Negative) mg/dL Urine Ketones Trace H (Negative) mg/dL Ur Blood (Man) Negative (Negative) Urine Nitrate Negative (Negative) Urine Bilirubin Negative (Negative) Urine Urobilinogen 0.2 (<2.0) mg/dL Leukocyte Esterase Rfl Negative (Negative) CHIQUITA/UL POC Urine HCG, Qual (Negative) <Memo Obrien PA-C - Last Filed: 09/13/24 16:12> Lab Results 09/13/24 09/13/24 09/13/24 Range/Units 16:13 16:14 18:16 WBC 8.6 (4.5-10.0) K/mm3 RBC 5.08 (4.2-5.4) M/mm3 Hgb 14.5 (12.0-15.0) g/dL Hct 44.1 (37.0-47.0) % MCV 86.8 (80-100) fl MCH 28.5 (26-34) pg MCHC 32.9 (32-36) g/dl RDW 12.8 (11.5-14.5) % Plt Count 325 (150-375) k/mm3 MPV 11.9 H (7.4-10.4) fl Immature Gran % (Auto) 0.2 (0-0.5) % Neut % (Auto) 55.7 (45.5-73.1) % Lymph % (Auto) 32.4 (18.3-44.2) % [place] % (Auto) 7.1 (2.6-8.5) % Eos % (Auto) 3.4 (0-4.4) % Baso % (Auto) 1.2 (0.2-1.2) % Lymph # (Auto) 2.80 (0.9-3.2) K/mm3 [place] # (Auto) 0.6 (0.1-0.6) K/mm3 Eos # (Auto) 0.3 (0-0.3) K/mm3 Baso # (Auto) 0.1 (0.0-0.1) K/mm3 Abs Immat Gran (auto) 0.02 (0.00-0.031) K/mm3 Absolute Neuts (auto) 4.8 (1.3-6.7) K/mm3 Absolute Nucleated RBC 0.000 (0.0-0.012) K/mm3 Nucleated RBC % 0.0 (0.0-0.2) % PT 13.2 (11.1-14.7) Seconds INR 1.0 APTT 28.4 (22.3-36.8) Seconds Sodium 139 (137-145) mmol/L Potassium 3.7 (3.4-5.0) mmol/L Chloride 104 (98-107) mmol/L Carbon Dioxide 24 (22-30) mmol/L Anion Gap 11 (4-12) mmol/L BUN 12 (7-17) mg/dL Creatinine 0.81 (0.7-1.0) mg/dL Estim Creat Clear Calc Not Reportable Estimated GFR > 60 (59 - ) Glucose 87 (65-110) mg/dL Calcium 9.6 (8.4-10.2) mg/dL Magnesium 1.9 (1.6-2.3) mg/dL Total Bilirubin 0.1 L (0.2-1.3) mg/dL AST 22 (14-36) U/L ALT 24 (6-35) U/L Alkaline Phosphatase 79 (38-126) U/L Total Protein 8.0 (6.3-8.2) g/dL Albumin 4.7 (3.5-5.1) g/dL Lipase 125 (23-300) U/L Urine Color (Yellow) Urine Appearance (Clear) Urine pH (5.0-9.0) Ur Specific [place] (1.001-1.035) Urine Protein (Negative) mg/dL Urine Glucose (UA) (Negative) mg/dL Urine Ketones (Negative) mg/dL Ur Blood (Man) (Negative) Urine Nitrate (Negative) Urine Bilirubin (Negative) Urine Urobilinogen (<2.0) mg/dL Leukocyte Esterase Rfl (Negative) CHIQUITA/UL POC Urine HCG, Qual Negative (Negative) 09/13/24 Range/Units 18:17 WBC (4.5-10.0) K/mm3 RBC (4.2-5.4) M/mm3 Hgb (12.0-15.0) g/dL Hct (37.0-47.0) % MCV (80-100) fl MCH (26-34) pg MCHC (32-36) g/dl RDW (11.5-14.5) % Plt Count (150-375) k/mm3 MPV (7.4-10.4) fl Immature Gran % (Auto) (0-0.5) % Neut % (Auto) (45.5-73.1) % Lymph % (Auto) (18.3-44.2) % [place] % (Auto) (2.6-8.5) % Eos % (Auto) (0-4.4) % Baso % (Auto) (0.2-1.2) % Lymph # (Auto) (0.9-3.2) K/mm3 [place] # (Auto) (0.1-0.6) K/mm3 Eos # (Auto) (0-0.3) K/mm3 Baso # (Auto) (0.0-0.1) K/mm3 Abs Immat Gran (auto) (0.00-0.031) K/mm3 Absolute Neuts (auto) (1.3-6.7) K/mm3 Absolute Nucleated RBC (0.0-0.012) K/mm3 Nucleated RBC % (0.0-0.2) % PT (11.1-14.7) Seconds INR APTT (22.3-36.8) Seconds Sodium (137-145) mmol/L Potassium (3.4-5.0) mmol/L Chloride (98-107) mmol/L Carbon Dioxide (22-30) mmol/L Anion Gap (4-12) mmol/L BUN (7-17) mg/dL Creatinine (0.7-1.0) mg/dL Estim Creat Clear Calc Estimated GFR (59 - ) Glucose (65-110) mg/dL Calcium (8.4-10.2) mg/dL Magnesium (1.6-2.3) mg/dL Total Bilirubin (0.2-1.3) mg/dL AST (14-36) U/L ALT (6-35) U/L Alkaline Phosphatase (38-126) U/L Total Protein (6.3-8.2) g/dL Albumin (3.5-5.1) g/dL Lipase (23-300) U/L Urine Color Yellow (Yellow) Urine Appearance Clear (Clear) Urine pH 5.5 (5.0-9.0) Ur Specific [place] 1.021 (1.001-1.035) Urine Protein Negative (Negative) mg/dL Urine Glucose (UA) Negative (Negative) mg/dL Urine Ketones Trace H (Negative) mg/dL Ur Blood (Man) Negative (Negative) Urine Nitrate Negative (Negative) Urine Bilirubin Negative (Negative) Urine Urobilinogen 0.2 (<2.0) mg/dL Leukocyte Esterase Rfl Negative (Negative) CHIQUITA/UL POC Urine HCG, Qual (Negative) <Davy Andrew MD - Last Filed: 09/13/24 21:41> Discharge Plan Discharge Clinical Impression: Abdominal pain, Diarrhea <Memo Obrien PA-C - Last Filed: 09/13/24 16:12> Patient Disposition: Home, Self-Care <Memo Obrien PA-C - Last Filed: 09/13/24 16:12> Condition: Stable <Memo Obrien PA-C - Last Filed: 09/13/24 16:12> Instructions: Antibiotic Form, Acute Diarrhea (ED), Abdominal Pain (ED) <Memo Obrien PA-C - Last Filed: 09/13/24 16:12> Patient Language: Maori <Memo Obrien PA-C - Last Filed: 09/13/24 16:12> Prescriptions: New dicyclomine 20 mg tablet 20 mg PO QID PRN (Reason: abdominal discomfort) Qty: 20 0RF ondansetron 4 mg tablet,disintegrating 4 mg PO Q8H PRN (Reason: nausea and vomiting) Qty: 10 0RF No Action albuterol sulfate [Ventolin HFA] 90 mcg/actuation HFA aerosol inhaler 1 inh inhalation Q4H PRN (Reason: shortness of breath or wheezing) Qty: 8.5 3RF drospirenone-ethinyl estradiol 3-0.02 mg tablet 1 tablet PO DAILY Qty: 84 3RF metformin 500 mg tablet extended release 24 hr 500 mg PO DAILY Qty: 90 1RF cyclobenzaprine 5 mg tablet See Rx Instructions .ROUTE .COMPLEX Qty: 90 3RF Dose Instruction: TAKE 1 TABLET BY MOUTH THREE TIMES DAILY NEEDED FOR MUSCLE SPASM Rx Instructions: TAKE 1 TABLET BY MOUTH THREE TIMES DAILY NEEDED FOR MUSCLE SPASM <Memo Obrien PA-C - Last Filed: 09/13/24 16:12> Follow-up/Referrals: Claudia Watts APRN [Primary Care Provider] - <Memo Obrien PA-C - Last Filed: 09/13/24 16:12> Time of Disposition: 21:39 <Memo Obrien PA-C - Last Filed: 09/13/24 16:12> 21:39 <Davy Andrew MD - Last Filed: 09/13/24 21:41>
[2024-09-13 16:25] LABS: Basophils Absolute Auto 0.1 K/mm3 (0.0-0.1); Basophils Percent Auto 1.2 % (0.2-1.2); Eosinophils Absolute Auto 0.3 K/mm3 (0-0.3); Eosinophils Percent Auto 3.4 % (0-4.4); Hematocrit 44.1 % (37.0-47.0); Hemoglobin 14.5 g/dL (12.0-15.0); Immature Granulocyte Absolute 0.02 K/mm3 (0.00-0.031); Immature Granulocyte Percent A 0.2 % (0-0.5); Lymphocytes Percent Auto 32.4 % (18.3-44.2); Mean Corpuscular HGB Conc 32.9 g/dl (32-36); Mean Corpuscular Hemoglobin 28.5 pg (26-34); Mean Corpuscular Volume 86.8 fl (80-100); Mean Platelet Volume 11.9 fl (7.4-10.4); Monocytes Absolute Auto 0.6 K/mm3 (0.1-0.6); Monocytes Percent Auto 7.1 % (2.6-8.5); Neutrophils Absolute Auto 4.8 K/mm3 (1.3-6.7); Neutrophils Percent Auto 55.7 % (45.5-73.1); Platelet Count Result 325 k/mm3 (150-375); Red Blood Count 5.08 M/mm3 (4.2-5.4); Red Cell Distribution Width 12.8 % (11.5-14.5); White Blood Count 8.6 K/mm3 (4.5-10.0)
[2024-09-13 16:36] LABS: Alanine Aminotransferase 24 U/L (6-35); Albumin Level 4.7 g/dL (3.5-5.1); Alkaline Phosphatase 79 U/L (38-126); Anion Gap 11 mmol/L (4-12); Aspartate Amino Transferase 22 U/L (14-36); Bilirubin,Total 0.1 mg/dL (0.2-1.3); Blood Urea Nitrogen 12 mg/dL (7-17); Calcium 9.6 mg/dL (8.4-10.2); Carbon Dioxide 24 mmol/L (22-30); Chloride 104 mmol/L (98-107); Estimated Glomerular Filt Rate > 60; Glucose 87 mg/dL (65-110); Lipase 125 U/L (23-300); Magnesium 1.9 mg/dL (1.6-2.3); Potassium 3.7 mmol/L (3.4-5.0); Sodium 139 mmol/L (137-145)
[2024-09-13 16:37] LABS: Prothrombin Time 13.2 Seconds (11.1-14.7)
[2024-09-13 16:38] LABS: Partial Thromboplastin Time 28.4 Seconds (22.3-36.8)
--- OUTSIDE RECORDS SUMMARY | 2024-09-13 17:47 | XMS_ITS | Referral Summary ---
Author Organization [facility] Address [address] [place] [id number] Care Team Providers Care Chart Snatcher Name Role Phone Claudia Watts NP Primary Care Provider [phone] Allergies No known active allergies Medications NuvaRing 0.12-0.015 mg/24 hr vaginal ring INSERT 1 RING VAGINALLY FOR 3 WEEKS, THEN REMOVE FOR 1 WEEK 4 Active metFORMIN XR (GLUCOPHAGE XR) 500 mg 24 hr tablet Take 1 tablet (500 mg total) by mouth daily 4 Active Active Problems No known active problems Social History Tobacco Use Types Packs/Day Years Used Date Smoking Tobacco: Never Assessed Comments Unknown Sex and Gender Information Value Date Recorded Sex Assigned at Not on file Legal Sex Female 9:13 AM MAILING SPECIALIST Gender Identity Not on file Sexual Orientation Not on file Last Filed Vital Signs Vital Sign Reading Time Taken Comments Blood Pressure 128/86 06/03/2024 9:37 AM MAILING SPECIALIST Pulse 83 06/03/2024 9:37 AM MAILING SPECIALIST Temperature 37.1 C (98.8 F) 06/03/2024 9:37 AM MAILING SPECIALIST Respiratory Rate 18 06/03/2024 9:37 AM MAILING SPECIALIST Oxygen Saturation 97% 06/03/2024 9:3 7 AM MAILING SPECIALIST Inhaled Oxygen Concentration - - Weight 86.2 kg (190 lb) 06/03/2024 9:37 AM MAILING SPECIALIST Height 157.5 cm (5' 2 ) 06/03/2024 9:37 AM MAILING SPECIALIST Patient reports Body Mass Index 34.75 06/03/2024 9:37 AM MAILING SPECIALIST Plan of Treatment Not on file Insurance [employer] ACCESS CHOICE Care Teams Chart Snatcher Relationship Specialty Start Date End Date Claudia Watts NP [address] [place] [address] PCP - General Nurse Practitioner 06/03/24
--- OUTSIDE RECORDS SUMMARY | 2024-09-13 17:47 | XMS_ITS | Clinical Summary ---
Author Organization [facility] Address [address] [place] [address] Phone Care Team Providers Care Electrician Constructor Supervisor Name Role Phone Unavailable Primary Care Provider Unavailabl e Social History Tobacco Use Types Packs/Day Years Used Date Smoking Tobacco: Never Assessed Comments Unknown Sex and Gender Information Value Date Recorded Sex Assigned at Not on file Legal Sex Female 3:58 PM CDT Gender Identity Not on file Sexual Orientation Not on file Plan of Treatment Health Maintenance Due Date Last Done Comments DTAP/TDAP/TD VACCINES (1 - Tdap) 2014 HEPATITIS B VACCINES (1 of 3 - 19+ 3-dose series) 2014 CERVICAL CANCER SCREENING 2016 INFLUENZA VACCINE (#1) 2024 HPV VACCINES Aged Out No longer eligi ble based on patient's age to complete this topic PNEUMOCOCCAL VACCINE 0-49 YEARS Aged Out No longer eligible based on patient's age to complete this topic Insurance [employer] ACCESS CHOICE
--- OUTSIDE RECORDS SUMMARY | 2024-09-13 17:47 | XMS_ITS | Clinical Summary ---
Author Organization [facility] Address [address] [place] [address] Care Team Providers Care Contact Lens Assistant Name Role Phone Danuta Salcedo MD Primary Care Provider Source Comments [facility],non-owned Affiliates and Associated Physician Practices is amultiple site organization consisting of ambulatory clinics and hospital sitesin [place], [place], [place] and [place]. This disclosure is being madepursuant to the Care Everywhere program and may not contain all information available regarding this patient. Last updated 18.[facility] Allergies No known active allergies Medications * Be aware that medications may not be up to date on this document. Alwaysverify current medications with the patient. Medication Sig Dispensed Refills Start Date End Date Status Vit-DSS-Fe Fum-FA ( vitamin with iron) tablet Take 1 (one) tablet by mouth once daily Active albuterol HFA (Proventil; Ventolin; Proair) 108 (90 Base) MCG/ACT inhaler Inhale 2 (two) puffs by mouth every 6 hours as needed Active Insulin Pen Needle 32G X 4 MM MISC Use 1 Each 2 times daily 100 Each 4 07/02/2022 Active Glucagon (Baqsimi One Pack) 3 MG/DOSE POWD [place] 3 mg into the nose as needed 1 Each 1 07/02/2022 Active vitamin D3 (Cholecalciferol) 25 MCG (1000 UNITS) tablet Take 1 (one) tablet by mouth once daily Active Basaglar KwikPen (Basaglar) pen Inject 20 (twenty) Units to 50 (fifty) Units subcutaneously as directed Start with 10 units in morning, 10 in evening. Increase as directed. 15 mL 2 07/09/2022 Active Additional Information Patient taking differently:20-50 Units Subcutaneous DIRECTED, Start with 10 units in morning, 10 in evening. Increase as directed.10/01/22 Pt taking 28 units AM/ 28 units PM., Reported on 10/01/2022 insulin lispro (HumaLOG;ADMelog) 100 UNIT/ML pen Inject 4 (four) Units to 30 (thirty) Units subcutaneously as directed Start with 4 units before dinner. Increase as directed. 15 mL 07/30/2022 Active Additional Information Patient taking differently:4-30 Units Subcutaneous DIRECTED, Start with 4 units before dinner. Increase as directed.10/01/22 Pt taking 4 units breakfast/ 8 units at lunch., Reported on 10/01/2022 Insulin Pen Needle 32G X 4 MM MISCIndications:In [facility] controlled gestational diabetes mellitus (GDM) in second trimester (HCC) Use 1 Each 3 times daily 100 Each 4 07/30/2022 Active Active Problems Problem Noted Date Diagnosed Date Gestational diabetes mellitus (GDM) requiring in [facility] 07/02/2022 Short interval between pregn ancies affecting , antepartum 07/02/2022 Social History Tobacco Use Types Packs/Day Years Used Date Smoking Tobacco: Never Smokeless Tobacco: Never Tobacco Cessation:Counseling Given: Not Answered Alcohol Use Standard Drinks/Week Comments Never 0 (1 standard drink = 0.6 oz pur e alcohol) Sex and Gender Information Value Date Recorded Sex Assigned at Not on file Gender Identity Not on file Sexual Orientation Not on file Last Filed Vital Signs Vital Sign Reading Time Taken Comments Blood Pressure 111/69 10/10/2022 10:04 AM CDT Pulse 90 10/10/2022 10:04 AM CDT Temperature - - Respiratory Rate - - Oxygen Saturation - - Inhaled Oxygen Concentration - - Weight 98.9 kg (218 lb) 10/01/2022 1:10 PM CDT Height - - Body Mass Index - - Plan of Treatment Health Maintenance Due Date Last Done Comments PAP SMEAR 1995 HIV SCREENING 2010 HEPATITIS C SCREENING 08/21/2013 DTAP/TDAP/TD VACCINES (1 - Tdap) 2014 HEPATITIS B VACCINE (1 of 3 - 19+ 3-dose series) 2014 COVID-19 VACCINE (2023-2 5 season) 2024 INFLUENZA VACCINE (#1) 2024 05/08/2021 DEPRESSION SCREENING 06/29/2024 ZOSTER VACCINE (1 of 2) 2045 HIB VACCINE Aged Out No longer eligi ble based on patient's age to complete this topic HPV VACCINE Aged Out No longer eligi ble based on patient's age to complete this topic MENINGOCOCCAL (Group B) VACC INE SHARED DECISION-MAKING Aged Out No longer eligibl e based on patient's age to complete this topic MENINGOCOCCAL GROUPS A/C/Y/W VACCINE Aged Out No longer eligible b ased on patient's age to complete this topic PNEUMOCOCCAL VACCINE Aged Out No long er eligible based on patient's age to complete this topic Care Teams Contact Lens Assistant Relationship Specialty Start Date End Date Danuta Salcedo MD [address] [place] [phone] PCP - General 10/15/21
--- OUTSIDE RECORDS SUMMARY | 2024-09-13 17:47 | XMS_ITS | Clinical Summary ---
Author Organization [facility] [address] Address [address] [place] [address] Care Team Providers Care Block Cleaner Name Role Phone Claudia Watts NP Primary Care Provider [phone] Allergies No known active allergies Medications NuvaRing [...] on file Legal Sex Female 9:13 AM BALANCE WHEEL SCREW HOLE DRILLER Gender Identity Not on file Sexual Orientation Not on file Last Filed Vital Signs Vital Sign Reading Time Taken Comments Blood Pressure 128/86 06/03/2024 9:37 AM BALANCE WHEEL SCREW HOLE DRILLER Pulse 83 06/03/2024 9:37 AM BALANCE WHEEL SCREW HOLE DRILLER Temperature 37.1 C (98.8 F) 06/03/2024 9:37 AM BALANCE WHEEL SCREW HOLE DRILLER Respiratory Rate 18 06/03/2024 9:37 AM BALANCE WHEEL SCREW HOLE DRILLER Oxygen Saturation 97% 06/03/2024 9:3 7 AM BALANCE WHEEL SCREW HOLE DRILLER Inhaled Oxygen Concentration - - Weight 86.2 kg (190 lb) 06/03/2024 9:37 AM BALANCE WHEEL SCREW HOLE DRILLER Height 157.5 cm (5' 2 ) 06/03/2024 9:37 AM BALANCE WHEEL SCREW HOLE DRILLER Patient reports Body Mass Index 34.75 06/03/2024 9:37 AM BALANCE WHEEL SCREW HOLE DRILLER Plan of Treatment Health Maintenance Due Date Last Done Comments Cervical Cancer Screening 1995 Depression Screening 1995 Hepatitis C Screening 1995 DTaP/Tdap/Td Vaccine (1 - Tdap) 2006 Varicella Vaccines (1 of 2 - 13+ 2-dose series) 2008 Hepatitis B Screening 2013 Regular Well Visit/Exam 18-64 2013 Influenza Vaccine (#1) 2024 HPV Vaccines Aged Out No longer eligi ble based on patient's age to complete this topic Pneumococcal vaccine <65 Aged Out No longer eligible based on patient's age to complete this topic Insurance [employer] ACCESS CHOICE Care Teams Block Cleaner Relationship Specialty Start Date End Date Claudia Watts NP [address] [place] [address] PCP - General Nurse Practitioner 06/03/24
[2024-09-13 18:21] LABS: BEDSIDEPREGUCG Negative (Negative)
[2024-09-13 18:33] LABS: Add Urine Microscopic? NO; Appearance Urine Clear (Clear); Bilirubin Urine Negative (Negative); Blood Urine Negative (Negative); Color Urine Yellow (Yellow); Glucose Urine UA Negative (Negative); Ketones Urine Trace mg/dL (Negative); Leukocyte Esterase Ur Negative LEU/UL (Negative); Nitrate Urine Negative (Negative); Protein Urine Negative (Negative); Specific Grav Ur 1.021 (1.001-1.035); Urobilinogen Urine 0.2 mg/dL (<2.0); pH Urine 5.5 (5.0-9.0)
[2024-09-13] MEDS: SODIUM CHLORIDE 0.9% IV 1,000 ML 999 ML IV CONT (20:37)
[2024-09-13 20:39] VITALS: BP 128/82; PULSE 85; RESP 16; O2SAT 99
--- NOTE | 2024-09-13 21:51 | PC.NURSE ---
pt had arm bent and IV fluids were paused. REadjusted pt's arm and fluids are finishing up now.
[2024-09-13 22:00] VITALS: BP 127/80; PULSE 85; RESP 16; O2SAT 98
== END 2024-09-13 22:14 | disposition home or self-care (01) ==
PROVIDERS: Physician Assistant; Emergency Provider Emergency Medicine; PCP Nurse Practitioner Adult Health
DX: R19.7 Diarrhea, unspecified (principal); R10.9 Unspecified abdominal pain; J45.909 Unspecified asthma, uncomplicated; F41.9 Anxiety disorder, unspecified; Z87.891 Personal history of nicotine dependence; Z79.84 Long term (current) use of oral hypoglycemic drugs; Z79.3 Long term (current) use of hormonal contraceptives
CPT/HCPCS: 36415; 74177; 80053; 81003; 81025; 83690; 83735; 85025; 85610; 85730; 96360; 99284; J7030; Q9967

== ENCOUNTER 2024-09-29 14:16 | Outpatient (CLI) | payer BC, SELFPAY ==
--- NOTE | ~2024-09-29 | US_ITS ---
EXAM: PELVIC ULTRASOUND HISTORY: PCOs COMPARISON: None FINDINGS: UTERUS: 9.2 x 4.3 x 5.2cm. The uterus demonstrates a striated echogenicity suggesting adenomyosis. The endometrial complex measures 2 mm. RIGHT OVARY: The right ovary is unremarkable in echogenicity and size measuring 4.0 x 2.3 x 3.9 cm. Dopplerable flow is identified. LEFT OVARY: The left ovary is unremarkable in echogenicity and size measuring 3.7 x 1.9 x 3.3 cm Dopplerable flow is identified. No free fluid is identified within the pelvis. IMPRESSION: Striated appearance to the uterine parenchyma suggesting adenomyosis. Normal-appearing small follicles within the ovaries, without suggestion of PCOS Reviewed, dictated and finalized at location A.
== END 2024-09-29 14:17 | disposition home or self-care (01) ==
LOC: MICIMG 14:17
PROVIDERS: PCP Nurse Practitioner Adult Health; Visit Provider Obstetrics & Gynecology Gynecology
DX: E28.2 Polycystic ovarian syndrome (principal)
CPT/HCPCS: 76830; 76856